=== PATIENT | male | born 1945 | race Caucasian/White ===

== ENCOUNTER 2016-10-19 11:52 | Inpatient (IN) | payer MEDICARE ==
[2016-10-19] VITALS (43 sets, daily range): BP systolic 93–152; BP diastolic 52–99; PULSE 83–122; RESP 18–34; TEMP 98; O2SAT 92–96; Ht 165.1 cm; Wt 121.2 kg
[~2016-10-19] VITALS: Ht 165.1 cm; Wt 121.2 kg
[~2016-10-19 11:52] MED LIST: [UNRECOGNIZED DRUG - CODE] IJ
--- OUTSIDE RECORDS SUMMARY | 2016-10-19 11:57 | XMS REPORT | Referral Summary ---
Author Author [facility], [facility] Organization [facility] Address Unknown Phone Unavailable Care Team Providers Care Tile Layer Name Role Phone Mitra Olmedo Primary Care Physician [phone] Encounter VC Date(s): 12/14/14 - 12/14/14 [facility] [address] [place] [id number] Discharge Disposition: 01-Home or Self Care Attending Physician: Ramon Olmedo MD Admitting Physician: Ramon Olmedo MD Vital Signs Most recent to 1 oldest [Reference Range]: Temperature Tympanic 36.5 degC [36.6-38.1 degC] *LOW* (12/14/14 2:46 PM) Blood Pressure 130/84 mmHg [90-140/60-90 mmHg] (12/14/14 2:46 PM) Problem List Condition Effective Dates Status Health Status Informant Acute Active pancreatitis(Confirm ed) Alcohol Active abuse(Confirmed) Alcohol Active withdrawal(Confirmed ) Benign essential Active hypertension (disorder)(Confirmed ) Coronary Active arteriosclerosis (disorder)(Confirmed ) Coronary artery Active disease(Confirmed) Dehydration(Confirme Active d) Depression(Confirmed Active ) Elevated Active carcinoembryonic antigen(Confirmed) Esophageal Active reflux(Confirmed) Hypertension(Confirm Resolved ed) Morbid Active patient obesity(Confirmed) Myocardial Active infarction(Confirmed ) Pneumonia(Confirmed) Active Allergies, Adverse Reactions, Alerts Substance Reaction Severity Status penicillin Active Medications Aleve 220 mg, Oral, q8hr Start Date: 03/29/14 Status: Ordered aspirin 81 mg, Oral, Daily Start Date: 03/29/14 Status: Ordered Excedrin Extra Strength tabs, Oral, q6hr Start Date: 03/29/14 Status: Ordered hydrochlorothiazide 25 mg oral tablet 25 mg 1 tabs, Oral, Daily, X 90 days, # 90 tabs, 3 Refill(s), Pharmacy: [facility] #[id number], 1 tabs Oral Daily,x90 days Start Date: 05/20/15 Stop Date: 05/14/16 Status: Ordered multivitamin Daily Start Date: 03/29/14 Status: Ordered Results No data available for this section Immunizations Vaccine Date Refusal Reason pneumococcal 23-polyvalent vaccine 10/31/12 tetanus toxoid 10/31/12 Procedures Procedure Date Related Diagnosis Body Site Hernia repair Social History Social History Type Response Smoking Status Former smoker1 1quit in 1970s Assessment and Plan Extracted from: Title: Office Visit Note Author: Ramon Olmedo MD Date: 12/14/14 Assessment/Plan Visit for suture removal Plan: routine wound care. Ordered: Postoperative Est [id number]
--- OUTSIDE RECORDS SUMMARY | 2016-10-19 11:57 | XMS REPORT | Referral Summary ---
Author Author [facility], Family [facility] Organization [facility] Address Unknown Phone Unavailable Care Team Providers Care Maintenance Coordinator Name Role Phone Mitra Olmedo Primary Care Physician [phone] Encounter VC Date(s): 11/16/14 - 11/16/14 [facility] [address] [place] [id number] Discharge Disposition: 01-Home or Self Care Attending Physician: Ramon Olmedo MD Admitting Physician: Ramon Olmedo MD Vital Signs Most recent to 1 oldest [Reference Range]: Temperature Tympanic 36.6 degC [36.6-38.1 degC] (11/16/14 2:03 PM) Peripheral Pulse 76 bpm Rate [60-100 bpm] (11/16/14 2:03 PM) Blood Pressure 148/82 mmHg [90-140/60-90 mmHg] *HI* (11/16/14 2:03 PM) Problem List Condition Effective Dates Status [...] days, # 90 tabs, 3 Refill(s), Pharmacy: [facility] #[id number], 1 tabs Oral Daily,x90 days Start Date: 05/20/15 Stop Date: 05/14/16 Status: Ordered multivitamin Daily Start Date: 03/29/14 Status: Ordered Results Chemistry Most recent to 1 oldest [Reference Range]: Sodium Lvl [135-144 139 mEq/L mEq/L] (11/16/14 2:58 PM) Potassium Lvl 4.3 mEq/L [3.5-5.2 mEq/L] (11/16/14 2:58 PM) Chloride [99-111 105 mEq/L mEq/L] (11/16/14 2:58 PM) CO2 [23-31 mEq/L] 22 mEq/L *LOW* (11/16/14 2:58 PM) AGAP [3-20] 12 (11/16/14 2:58 PM) BUN [8-26 mg/dL] 16 mg/dL (11/16/14 2:58 PM) Glucose Lvl [70-99 121 mg/dL mg/dL] *HI* (11/16/14 2:58 PM) Creatinine Lvl 0.78 mg/dL [0.72-1.25 mg/dL] (11/16/14 2:58 PM) eGFR [>60 mL/min] >60 mL/min 1 (11/16/14 2:58 PM) Calcium Lvl 9.6 mg/dL [8.9-10.5 mg/dL] (11/16/14 2:58 PM) 1Result Comment: Multiply eGFR results by 1.21 for race. Immunizations Vaccine Date Refusal Reason pneumococcal 23-polyvalent vaccine 10/31/12 tetanus toxoid 10/31/12 Procedures Procedure Date Related Diagnosis Body Site Hernia repair Social History Social History Type Response Smoking Status Former smoker1 1quit in 1970s Assessment and Plan Extracted from: Title: Office Visit Note Author: Ramon Olmedo MD Date: 11/16/14 Assessment/Plan Arm mass Benign essential hypertension (disorder) Ordered: Basic Metabolic Panel Coronary artery disease Plan: Continue all current medications and follow- up in 6 months. I'm checking lab tests today. Regarding the cyst I tried to drain it and it still seemed to fill out. Let's do an excisional biopsy/ removal of lesion.
--- OUTSIDE RECORDS SUMMARY | 2016-10-19 11:57 | XMS REPORT | Referral Summary ---
Author Author [facility], [facility] Organization [facility] Address Unknown Phone Unavailable Care Team Providers Care Title Lawyer Name Role Phone Mitra Olmedo Primary Care Physician [phone] Encounter VC Date(s): 05/20/15 - 05/20/15 [facility] [address] [place] [id number] Discharge Diagnosis: Hyperglycemia Discharge Diagnosis: Benign essential hypertension Discharge Disposition: 01-Home or Self Care Attending Physician: Ramon Olmedo MD Admitting Physician: Ramon Olmedo MD Vital Signs Most recent to 1 oldest [Reference Range]: Temperature Tympanic 36.1 degC [36.6-38.1 degC] *LOW* (05/20/15 1:06 PM) Peripheral Pulse 76 bpm Rate [60-100 bpm] (05/20/15 1:06 PM) Respiratory Rate 16 br/min [14-20 br/min] (05/20/15 1:06 PM) Blood Pressure 138/72 mmHg [90-140/60-90 mmHg] (05/20/15 1:06 PM) Problem List Condition Effective Dates Status [...] days, # 90 tabs, 3 Refill(s), Pharmacy: [facility] #[id number], 1 tabs Oral Daily,x90 days Start Date: 05/20/15 Stop Date: 05/14/16 Status: Ordered multivitamin Daily Start Date: 03/29/14 Status: Ordered Results Chemistry Most recent to 1 oldest [Reference Range]: Sodium Lvl [135-144 134 mEq/L mEq/L] *LOW* (05/20/15 2:03 PM) Potassium Lvl 4.0 mEq/L [3.5-5.2 mEq/L] (05/20/15 2:03 PM) Chloride [99-111 100 mEq/L mEq/L] (05/20/15 2:03 PM) CO2 [23-31 mEq/L] 24 mEq/L (05/20/15 2:03 PM) AGAP [3-20] 10 (05/20/15 2:03 PM) BUN [8-26 mg/dL] 16 mg/dL (05/20/15 2:03 PM) Glucose Lvl [70-99 249 mg/dL mg/dL] *HI* (05/20/15 2:03 PM) Creatinine Lvl 0.89 mg/dL [0.72-1.25 mg/dL] (05/20/15 2:03 PM) eGFR [>60 mL/min] >60 mL/min 1 (05/20/15 2:03 PM) Calcium Lvl 9.5 mg/dL [8.9-10.5 mg/dL] (05/20/15 2:03 PM) Hgb A1c [4.1-5.6 %] 11.1 % *HI* (05/20/15 2:03 PM) eAvg Glucose 271.9 mg/dL (05/20/15 2:03 PM) 1Result Comment: Multiply eGFR results by 1.21 for race. Immunizations Vaccine Date Refusal Reason pneumococcal 23-polyvalent vaccine 10/31/12 tetanus toxoid 10/31/12 Procedures Procedure Date Related Diagnosis Body Site Hernia repair Social History Social History Type Response Smoking Status Former smoker1 1quit in 1970s Assessment and Plan Extracted from: Title: Office Visit Note Author: Ramon Olmedo MD Date: 05/20/15 Assessment/Plan Benign essential hypertension, Essential (primary) hypertension Ordered: Basic Metabolic Panel Hyperglycemia, Hyperglycemia, unspecified Plan: Continue all current medications. Follow-up in 6 months with your new primary care doctor. We discussed need to find a new primary care doctor. We checking lab tests for diabetes. Also checking your kidney status. Ordered: Hemoglobin A1c Orders: hydrochlorothiazide, 25 mg 1 tabs, Oral, Daily, X 90 days, # 90 tabs, 3 Refill(s), Pharmacy: [facility] #[id number], 1 tabs Oral Daily,x90 days
--- OUTSIDE RECORDS SUMMARY | 2016-10-19 11:57 | XMS REPORT | Referral Summary ---
Author Author [facility], Family [facility] Organization [facility] Address Unknown Phone Unavailable Care Team Providers Care Neon Installer Name Role Phone Mitra Olmedo Primary Care Physician [phone] Encounter VC Date(s): 12/05/14 - 12/05/14 [facility] [address] [place] [id number] Discharge Disposition: 01-Home or Self Care Attending Physician: Ramon Olmedo MD Admitting Physician: Ramon Olmedo MD Vital Signs Most recent to 1 oldest [Reference Range]: Temperature Tympanic 37.0 degC [36.6-38.1 degC] (12/05/14 1:02 PM) Blood Pressure 158/84 mmHg [90-140/60-90 mmHg] *HI* (12/05/14 1:02 PM) Problem List Condition Effective Dates Status [...] 90 tabs, 3 Refill(s), Pharmacy: [facility] #[id number], 1 tabs Oral Daily,x90 days Start Date: 05/20/15 Stop Date: 05/14/16 Status: Ordered multivitamin Daily Start Date: 03/29/14 Status: Ordered Results No data available for this section Immunizations Vaccine Date Refusal Reason pneumococcal 23-polyvalent vaccine 10/31/12 tetanus toxoid 10/31/12 Procedures Procedure Date Related Diagnosis Body Site Excision, benign lesion including margins, 12/05/14 except skin tag (unless listed elsewhere), trunk, arms or legs; excised diameter 0.6 to 1.0 cm Hernia repair Social History Social History Type Response Smoking Status Former smoker1 1quit in 1970s Assessment and Plan Extracted from: Title: Office Visit Note Author: Ramon Olmedo MD Date: 12/05/14 Assessment/Plan Sebaceous cyst Plan: I performed an incision and removal. Inserting the wound; Clean the area twice a day with soap and water. Cover with a bandaide. Return to the clinic a week from Wednesday to remove sutures. If any signs or symptoms of infection occur call or return immediately. Addendum Length of incision is 1.1 cm by Ramon Olmedo MD on December 05, 2014 13:52:13 CDT
--- OUTSIDE RECORDS SUMMARY | 2016-10-19 11:57 | XMS REPORT | Continuity of Care Document ---
Author Author [facility] Organization [facility] Address Unknown Phone Unavailable Allergies Active Description Code Type Severity Reaction Onset Reported/Identified Relationship to Patient Clinical Status Yes penicillin NKMA N/A N/A 10/05/2013 Medications Problems Procedures Results Encounters ACCT No. Visit Date/Time Discharge Status Pt. Type Provider Facility Loc./Unit Complaint [id number] 05/20/2015 12:55:00 2014 23:59:00 DIS Outpatient Ramon Olmedo [facility] [place] htn [id number] 12/14/2014 14:34:00 2014 23:59:00 DIS Outpatient Ramon Olmedo [facility] [place] suture rem [id number] 12/05/2014 12:41:00 2014 23:59:00 DIS Outpatient Ramon Olmedo [facility] [place] cyst lft knee
[2016-10-19] MEDS ORDERED: MULT-1274 PO (12:22)
[2016-10-19] MEDS ORDERED: ASPI325T PO (12:22)
--- NOTE | 2016-10-19 12:29 | NUR ---
PROVIDER DR MARINO IN ROOM W/ PT.
--- NOTE | 2016-10-19 12:32 | ERPDOC ---
Departure Disposition Decision Date: October 19, 2016 Disposition Decision Time: 13:42 Disposition: 02 TO [facility] Impression Impression Impression: Primary Impression: New onset atrial fibrillation Severity: Moderate Condition: Stable Seen By: Physician only Referrals: DEANNA SULTANA MD (Family) Problems/Meds/Labs Reviewed?: Yes Medications reviewed and manag: Yes Follow up care ordered?: Yes Mental Status: Alert, Oriented HPI - Dyspnea General Chief Complaint: Dyspnea/Respdistress Stated Complaint: TROUBLE BREATHING Time Seen by Provider: 12:29 HPI - Dyspnea Allergies: Coded Allergies: Penicillins (Verified Allergy, Unknown, UNKNOWN, 11/01/11) Past History Past Medical History GI: pancreatitis Psychological: alcohol abuse, depression Surgical History General: hernia Family History Family PMH: FOUND: other Vaccines Hx Influenza Vaccination: No (pt stated he did not want the vaccination) Hx Pneumococcal Vaccination: No Physical Exam General Vitals and Pain First Documented Vital Signs Date Time Temp Pulse Resp B/P Pulse Ox O2 Delivery O2 Flow Rate FiO2 10/19/16 11:54 98.2 146 24 153/102 95 Room Air Weight: Kilograms: 128.400 Height (feet): 5 Height (inches): 5.00 Triage Pain Scale: Progress Results/Orders Orders Procedure Category Date Status Time Cbc W/Auto LAB 10/19/16 Complete Diff-Reflex Manual 12:29 Cmp - Comprehensive LAB 10/19/16 Complete Metabolic 12:29 Probnp LAB 10/19/16 Complete 12:29 Troponin I W LAB 10/19/16 Complete Hemolysis Index 12:29 D-Dimer LAB 10/19/16 Complete 12:29 Tsh - Thyroid Stim LAB 10/19/16 Complete Hormone 12:29 Magnesium LAB 10/19/16 Complete 12:29 EKG EKG 10/19/16 Taken 12:29 Chest, Pa & Lateral RAD 10/19/16 Resulted 12:29 Iv Lock (Ed Only) EDM 10/19/16 Transmitted 12:29 Metoprolol (Lopressor) PHA 10/19/16 Complete 12:45 Furosemide (Lasix) PHA 10/19/16 Complete 12:45 Diltiazem (Cardizem*) PHA 10/19/16 Complete Iv Bolus (Cardizem 13:15 Normal Saline (Ns) PHA 10/19/16 In Process W/Diltiazem 13:15 Lab Results Laboratory Tests Test 10/19/16 12:39 White Blood Count 9.4T/MM3 Red Blood Count 4.66M/MM3 Hemoglobin 13.6GM/DL Hematocrit 41.1% Mean Corpuscular Volume 88.2UM3 Mean Corpuscular Hemoglobin 29.2UUG Mean Corpuscular Hemoglobin Concent 33.1GM/DL RDW Standard Deviation 47.3FL Platelet Count 163T/MM3 Mean Platelet Volume 12.8UM3 Immature Granulocyte % (Auto) 0.2% Neutrophils (%) (Auto) 70.3% Lymphocytes (%) (Auto) 21.7% Monocytes (%) (Auto) 5.9% Eosinophils (%) (Auto) 1.8% Basophils (%) (Auto) 0.1% Absolute Immature Granulocyte (auto 0.02T/MM3 Absolute Neutrophils (auto) 6.6T/MM3 Absolute Lymphocytes (auto) 2.1T/MM3 Absolute Monocytes (auto) 0.6T/MM3 Absolute Eosinophils (auto) 0.2T/MM3 Absolute Basophils (auto) 0.0T/MM3 D-Dimer 212NG/ML Turbidity < 20 Sodium Level 145MEQ/L Potassium Level 3.9MEQ/L Chloride Level 107MEQ/L Carbon Dioxide Level 23MEQ/L Anion Gap 15MEQ/L Blood Urea Nitrogen 16.0MG/DL Creatinine 0.8MG/DL Glomerular Filtration Rate Calc 95 BUN/Creatinine Ratio 20RATIO Glucose Level 118MG/DL Calculated Osmolality 281MOSM/KG Calcium Level 8.8MG/DL Magnesium Level 1.9MG/DL Total Bilirubin 1.60MG/DL Icterus Index < 2 Aspartate Amino Transf (AST/SGOT) 24U/L Alanine Aminotransferase (ALT/SGPT) 39U/L Alkaline Phosphatase 81U/L Troponin I < 0.012ng/ml [id number] Natriuretic Peptide 679PG/ML Total Protein 7.4G/DL Albumin 4.4G/DL Globulin 3.0G/DL Albumin/Globulin Ratio 1.5RATIO Thyroid Stimulating Hormone (TSH) 1.23MIU/L Chemistry Specimen Hemolysis < 15 Medications Current ED Medications Metoprolol Tartrate (Lopressor) 5 mg O ONCE IV Last administered on 10/19/16 12:42; Start 10/19/16 at 12:45; Stop 10/19/16 at 12:46; Status DC Furosemide (Lasix) 20 mg O ONCE IV Last administered on 10/19/16 12:41; Start 10/19/16 at 12:45; Stop 10/19/16 at 12:46; Status DC Diltiazem HCl 20 mg 20 mg O ONCE IV Last administered on 10/19/16 13:19; Start 10/19/16 at 13:15; Stop 10/19/16 at 13:16; Status DC Diltiazem HCl/ Sodium Chloride (Cardizem 125 Mg/ 25 ml Injection/ NS) 125 ml @ 10 mls/hr [id number] IV ; Start 10/19/16 at 13:15 PILY MARINO MD October 19, 2016 12:32
[2016-10-19] MEDS ORDERED: METOPROLOL 5mg/5ml INJECTION IV ONE (12:45)
[2016-10-19] MEDS ORDERED: FUROSEMIDE 20 MG/2 ML INJECTION IV ONE (12:45)
[2016-10-19 12:46] LABS: BASOPHILS % (AUTO) 0.1 % (0-2); EOSINOPHILS # (AUTO) 0.2 T/MM3 (0-0.5); EOSINOPHILS % (AUTO) 1.8 % (0-4); HCT - HEMATOCRIT 41.1 % (41-53); HGB - HEMOGLOBIN 13.6 GM/DL (13.5-17.5); IMMATURE GRANULOCYTE # (AUTO) 0.02 T/MM3 (0.00-0.03); IMMATURE GRANULOCYTE % (AUTO) 0.2 % (0.0-0.5); LYMPHOCYTES # (AUTO) 2.1 T/MM3 (1-4.8); LYMPHOCYTES % (AUTO) 21.7 % (23-45); MEAN CORPUSCULAR HGB 29.2 UUG (26-34); MEAN CORPUSCULAR HGB CONC(MCHC 33.1 GM/DL (31-37); MEAN CORPUSCULAR VOLUME 88.2 UM3 (80-100); MEAN PLATELET VOLUME 12.8 UM3 (9.4-12.4); MONOCYTES # (AUTO) 0.6 T/MM3 (0-0.8); MONOCYTES % (AUTO) 5.9 % (0-9.0); NEUTROPHILS #(AUTO)-ABSOLUTE 6.6 T/MM3 (1.8-7.7); NEUTROPHILS % (AUTO) 70.3 % (33-66); RED BLOOD COUNT 4.66 M/MM3 (4.50-5.90); WBC - WHITE BLOOD COUNT 9.4 T/MM3 (4.5-11.0)
[2016-10-19 12:59] LABS: ALBUMIN 4.4 G/DL (3.5-5.0); ALBUMIN/GLOBULIN RATIO 1.5 RATIO (1.1-2.2); ALKALINE PHOSPHATASE 81 U/L (38-126); ALT (SGPT) 39 U/L (21-72); ANION GAP 15 MEQ/L (5-15); AST (SGOT) 24 U/L (17-59); BUN/CREATININE RATIO 20 RATIO (6-26); CALCIUM 8.8 MG/DL (8.4-10.2); CHLORIDE 107 MEQ/L (98-107); CO2 - CARBON DIOXIDE 23 MEQ/L (22-30); CREATININE 0.8 MG/DL (0.8-1.5); GLOMERULAR FILTRATION RATE 95; GLUCOSE 118 MG/DL (75-110); MAGNESIUM 1.9 MG/DL (1.6-2.3); POTASSIUM 3.9 MEQ/L (3.6-5); SODIUM 145 MEQ/L (134-144); TOTAL PROTEIN 7.4 G/DL (6.3-8.2)
[2016-10-19 13:11] LABS: PROBNP 679 PG/ML (0-175)
[2016-10-19] MEDS ORDERED: DILTIAZEM 25mg/5ml INJECTION IV ONE (13:15)
[2016-10-19] MEDS ORDERED: DILTIAZEM 125 MG in NORMAL SALINE 125 ML IV SCH (13:15)
--- OUTSIDE RECORDS SUMMARY | 2016-10-19 13:16 | XMS REPORT | Continuity of Care Document ---
Author Author [facility] Organization [facility] Address Unknown Phone Unavailable Allergies Active Description Code Type Severity Reaction Onset Reported/Identified Relationship to Patient Clinical Status Yes penicillin NKMA N/A N/A 10/05/2013 Medications Problems Procedures Results Encounters ACCT No. Visit Date/Time Discharge Status Pt. Type Provider Facility Loc./Unit Complaint [id number] 05/20/2015 12:55:00 2014 23:59:00 DIS Outpatient Ramon Olmedo Via [facility] [place] htn [id number] 12/14/2014 14:34:00 2014 23:59:00 DIS Outpatient Ramon Olmedo [facility] [place] suture rem [id number] 12/05/2014 12:41:00 2014 23:59:00 DIS Outpatient Ramon Olmedo [facility] [place] cyst lft knee
--- NOTE | 2016-10-19 13:24 | NUR ---
XRAY PORTABLE CHEST
[2016-10-19 13:29] LABS: THYROID STIM HORMONE-TSH 1.23 MIU/L (0.47-4.68)
--- NOTE | 2016-10-19 13:30 | DI ---
INDICATION: ITS.REASON: shortness of breath, wheezing PROCEDURE: CHEST 2-VIEWS UPRIGHT (PA \T\ LAT) Encounter: Initial COMPARISON: November 02, 2011 FINDINGS: New small bilateral pleural effusions. There is bilateral lower lobe consolidation, right greater than left. There is obscuration of the right medial hemidiaphragm and prominence of the right infrahilar region. Small amount fluid along the minor fissure. No pneumothorax. Lungs are hypoinflated. Cardiac silhouette is mildly enlarged. Pulmonary vascularity appears slightly prominent. Impression: Right lower lobe pneumonia or aspiration with small effusions. There could be some element of superimposed pulmonary edema. .
--- NOTE | 2016-10-19 13:49 | NUR ---
REPORT REPORT GIVEN TO AZUCENA BENITO.
--- NOTE | 2016-10-19 14:10 | NUR ---
DEPART PT LEFT ER VIA CART TO CCU FOR CONT CARE OF A-FIB AND CHF CONDITION, PT LEFT VIA CART W/ O2 CHARTED AND CONSTANT MONITORING W/O CHANGE. PT CARE XFERED TO STAFF CCU RM 1 IN NO ACUTE DISTRESS W/O CHANGE.
--- NOTE | 2016-10-19 14:10 | NUR ---
Admit Pt admitted to CCU bed 1 from ER. Pt brought over via cart. Pt was able to ambulate self from cart to bed. Pt did however get very SOA and continues to have SOA with minimal activity. Pulse 110s when admitted. Cardizem gtt infusing into RH. Pt oriented to unit and verbalized understanding. Will continue monitor.
--- OUTSIDE RECORDS SUMMARY | 2016-10-19 14:10 | XMS REPORT | Continuity of Care Document ---
Author Author [facility] Organization [facility] Address Unknown Phone Unavailable Allergies Active Description Code Type Severity Reaction Onset Reported/Identified Relationship to Patient Clinical Status Yes penicillin NKMA N/A N/A 10/05/2013 Medications Problems Procedures Results Encounters ACCT No. Visit Date/Time Discharge Status Pt. Type Provider Facility Loc./Unit Complaint [id number] 05/20/2015 12:55:00 2014 23:59:00 DIS Outpatient Ramon Olmedo Via [facility] [place] htn [id number] 12/14/2014 14:34:00 2014 23:59:00 DIS Outpatient Ramon Olmedo [facility] [place] suture rem [id number] 12/05/2014 12:41:00 2014 23:59:00 DIS Outpatient Ramon Olmedo [facility] [place] cyst lft knee
[2016-10-19] MEDS ORDERED: ACETAMINOPHEN 500 MG TABLET PO PRN (14:45)
[2016-10-19] MEDS: DILTIAZEM 125 MG in NORMAL SALINE 125 ML IV SCH ×2 (14:47→20:36)
--- NOTE | 2016-10-19 14:50 | HPPDOC ---
LORAINE GONZALEZ V MACHINE ICER 10/19/16 1418: HPI - Adult Date DATE: 10/19/16 TIME: 14:05 General Chief Complaint: Dyspnea History of Present Illness Patient is a 71-year-old male who presented to the emergency room today for acute evaluation of dyspnea over the last 3 days. He reports shortness of breath that is worse at night while laying down. No chest pain, palpitations, dizziness, or GI complaints. Due to his consistent symptoms he presented to the ER today. On arrival to the emergency room his heart rate was found to be at 146 and 12-lead EKG did reveal atrial fibrillation RVR. Further evaluation including laboratory studies was obtained. The BBC count 9.4, hemoglobin 13.6, hematocrit 31.1, platelet count 163. Sodium slightly elevated at 145, potassium 3.9, BUN 16, creatinine 0.8, glucose 118. Total bilirubin is 1.6. Troponin is negative, less than 0.012, proBNP 679, TSH 1.23. D-dimer 212. Chest X-ray was obtained revealing new small bilateral pleural effusions along with right lower lobe possible pneumonia. He was given Lopressor 5 milligrams IV initially followed by Lasix 20 milligrams IV and Cardizem 10 milligrams IV. Cardizem drip was then started at 10 mg/hr. Rate decreased 110- 120 however rhythm remains in A-fib. Dr Pugh was contacted by the emergency room provider and will consult for further cardiac evaluation. The hospitalist services were contacted and accepted patient for inpatient admission to the ICU for further evaluation and treatment. Ovi is seen on initial examination today while in the ER. He is alert, oriented and appropriate. His only complaint is dyspnea that is worse when he attempts to lay back. He reports has not been seen by primary care provider in the past 2 years as his previous provider Dr. Olmedo left via [facility]. Patient states that he has no active health problems. He does report that he has chronic right lower extremity swelling that is worse around the ankle that he suspects is arthritis. We did discuss advanced directives and he does verify that he would like to be a full code. Past Medical History Past Medical History HTN Coronary artery disease with reported hx of NV Depression GERD History of pancreatitis History of alcohol abuse, quit October 2011 Surgical History Patient's Surgical History: Umbilical hernia repair. Cataract repair Current Medications Home Meds Reported Medications Multivit-Min/FA/Lycopen/Lutein (Centrum Silver Men Tablet) 1 Each Tablet, 1 TAB PO QD 10/19/16 Aspirin (Aspirin) 325 Mg Tablet, 1 TAB PO DAILY 10/19/16 Allergies: Coded Allergies: Penicillins (Verified Allergy, Unknown, UNKNOWN, 10/19/16) Family History Family History: Positive strong family history of alcohol abuse. Father-coronary artery disease, NV. Mother-CVA, seizure disorder Social History Smoking Status: Former smoker Substance Use Type: does not use Alcohol Intake: none, other (Former ETOH use. Quit 2014) Housing: house Current Occupational Status: employed ([employer] in [employer]) Advance Directives: Yes Full Code Social History Comments No current PCP (Used to see Dr Olmedo at [facility]) Review of Systems Cardiovascular dyspnea on exertion, paroxysmal nocturnal dysp Pulmonary Respiratory: dyspnea Musculoskeletal General: edema (chronic lower ext edema R>L), pain (chronic pain to RLE) All Other Systems All Other Systems: Reviewed (remainder of 10-point ROS Neg.) Physical Exam General General Nourishment: well nourished, well developed Vital Signs Vital Signs Date Time Temp Pulse Resp B/P Pulse Ox O2 Delivery O2 Flow Rate FiO2 10/19/16 11:54 98.2 146 24 153/102 95 Room Air Height (Feet): 5 Height (Inches): 5.00 Eyes Brief: FOUND: EOMI ENMT Brief: FOUND: mucosa moist, normal dentition, NOT FOUND: pharnyx erythema Neck Brief: FOUND: midline, NOT FOUND: adenopathy, carotid bruits, tracheal deviation Respiratory Brief: FOUND: clear all ray, equal bilaterally Cardiovascular (brief) Cardiac Brief: FOUND: pedal edema (chronic bilateral lower extremity edema, right > left) Comments Irregular heart rate, atrial fibrillation, rate 120s Abdomen (brief) Abdominal Brief: FOUND: BS normo active x4, soft, NOT FOUND: distended, tender Musculoskeletal (brief) Musculoskeletal Brief: FOUND: tenderness (Chronic right ankle pain) Integumentary (brief) Integumentary Brief: FOUND: dry, pink, warm Neurologic (brief) Neurological Brief: FOUND: cranial 2-12 intact, motor (moves all ext equally), sensory (sensation equal x4 ext) Neurologic RN Documented GCS Eye Opening: Verbal: Motor: Total: Psychiatric (brief) FOUND: alert, attentive, normal affect, oriented Laboratory Laboratory Tests Test 10/19/16 12:39 White Blood Count 9.4T/MM3 Red Blood Count 4.66M/MM3 Hemoglobin 13.6GM/DL Hematocrit 41.1% Mean Corpuscular Volume 88.2UM3 Mean Corpuscular Hemoglobin 29.2UUG Mean Corpuscular Hemoglobin Concent 33.1GM/DL RDW Standard Deviation 47.3FL Platelet Count 163T/MM3 Mean Platelet Volume 12.8UM3 Immature Granulocyte % (Auto) 0.2% Neutrophils (%) (Auto) 70.3% Lymphocytes (%) (Auto) 21.7% Monocytes (%) (Auto) 5.9% Eosinophils (%) (Auto) 1.8% Basophils (%) (Auto) 0.1% Absolute Immature Granulocyte (auto 0.02T/MM3 Absolute Neutrophils (auto) 6.6T/MM3 Absolute Lymphocytes (auto) 2.1T/MM3 Absolute Monocytes (auto) 0.6T/MM3 Absolute Eosinophils (auto) 0.2T/MM3 Absolute Basophils (auto) 0.0T/MM3 D-Dimer 212NG/ML Turbidity < 20 Sodium Level 145MEQ/L Potassium Level 3.9MEQ/L Chloride Level 107MEQ/L Carbon Dioxide Level 23MEQ/L Anion Gap 15MEQ/L Blood Urea Nitrogen 16.0MG/DL Creatinine 0.8MG/DL Glomerular Filtration Rate Calc 95 BUN/Creatinine Ratio 20RATIO Glucose Level 118MG/DL Calculated Osmolality 281MOSM/KG Calcium Level 8.8MG/DL Magnesium Level 1.9MG/DL Total Bilirubin 1.60MG/DL Icterus Index < 2 Aspartate Amino Transf (AST/SGOT) 24U/L Alanine Aminotransferase (ALT/SGPT) 39U/L Alkaline Phosphatase 81U/L Troponin I < 0.012ng/ml NZ-Ach-K-Type Natriuretic Peptide 679PG/ML Total Protein 7.4G/DL Albumin 4.4G/DL Globulin 3.0G/DL Albumin/Globulin Ratio 1.5RATIO Thyroid Stimulating Hormone (TSH) 1.23MIU/L Chemistry Specimen Hemolysis < 15 Assessment & Plan Problems: (1) New onset atrial fibrillation Status: Acute (2) Dyspnea Status: Acute Qualifiers: Dyspnea type: dyspnea on exertion Qualified Codes: R06.09 - Other forms of dyspnea (3) HTN (hypertension) Status: Chronic (4) CAD (coronary artery disease) Status: Chronic (5) GERD (gastroesophageal reflux disease) Status: Chronic (6) Obesity, Class III, BMI 40-49.9 (morbid obesity) Status: Chronic (7) History of alcohol dependence Status: Resolved Assessment & Plan: Quit October 2014 Plan/Intensity of Service Admit patient to inpatient status under the care of Dr Rodney for new-onset atrial fibrillation with RVR Spoke with Dr Pugh about cardiology consultation. He recommends diuresing with schedule Bumex every 8 hours. Patient initially received Lasix 20mg IV at 1245. Will continue on Cardizem drip at 10 milligrams per hour for rate control as he continues in atrial fibrillation. Continue to monitor on cardiac telemetry. Will obtain complete echocardiogram Obtain serial troponin every 6 hours 3. Although patient reports no past medical history old records revel history of coronary artery disease, GERD, NV, hypertension and alcohol abuse. It is also reported that a Hgb A1c was obtained in 2014 which was found to be elevated over 11. We will recheck Hgb A1C on admission now. Jose A elizabethe and SCDs to bilateral lower ext to assist with peripheral edema. Oxygen therapy as needed to maintain saturations greater then 92% CHADS2 score 2-3 , indicating a moderate risk of stroke predictor. Recommend initiation of anticoagulation. Cardiology recommends Eliquis 5 mg BID. Will initiate on admission. Will recheck BMP tomorrow morning to follow electrolytes Again patient requests full code and this order is written Will discuss further orders and plan with attending, Dr Rodney DVT Prophylaxis: SCD'S, JOSE A Hose, other (Eliquis) Code Status Full Code Hospital Course Summary Disclaimer The hospital course summary below is not to be considered part of the above Progress Note. Hospital Course Summary Admit patient to inpatient status under the care of Dr Rodney for new-onset atrial fibrillation with RVR Spoke with Dr Pugh about cardiology consultation. He recommends diuresing with schedule Bumex every 8 hours. Patient initially received Lasix 20mg IV at 1245. Will continue on Cardizem drip at 10 milligrams per hour for rate control as he continues in atrial fibrillation. Continue to monitor on cardiac telemetry. Will obtain complete echocardiogram Obtain serial troponin every 6 hours 3. Although patient reports no past medical history old records revel history of coronary artery disease, GERD, NV, hypertension and alcohol abuse. It is also reported that a Hgb A1c was obtained in 2015 which was found to be elevated over 11. We will recheck Hgb A1C on admission now. Jose A hose and SCDs to bilateral lower ext to assist with peripheral edema. Oxygen therapy as needed to maintain saturations greater then 92% CHADS2 score 2-3 , indicating a moderate risk of stroke predictor. Recommend initiation of anticoagulation. Cardiology recommends Eliquis 5 mg BID. Will initiate on admission. Will recheck BMP tomorrow morning to follow electrolytes Again patient requests full code and this order is written Will discuss further orders and plan with attending, MARKELL Pabon MD 10/19/16 1722: Past Medical History Current Medications Home Meds Reported Medications Multivit-Min/FA/Lycopen/Lutein (Centrum Silver Men Tablet) 1 Each Tablet, 1 TAB PO QD 10/19/16 Aspirin (Aspirin) 325 Mg Tablet, 1 TAB PO DAILY 10/19/16 Allergies: Coded Allergies: Penicillins (Verified Allergy, Unknown, UNKNOWN, 10/19/16) Assessment & Plan Assessment I have independently evaluated and examined this patient. I reviewed the chart, the patient's history, and the MACHINE ICER's documented findings as above. We discussed and formulated the assessment and plan as above with additions as below: Mr. Palma presents with nocturnal dyspnea/PND and minimal exertional dyspnea with relatively new onset over the past 3-4 days. Symptoms worsened last night. He has noted some edema in his lower extremities as well. He denies chest pain or palpitations. He has some minor intermittent reflux which he correlates with food type. Although outpatient records report past history of NV/CAD patient denies knowledge of any past coronary disease and old hospital records make no reference to acute cardiac events over the past 10 years. He is currently on a diltiazem drip at 15 mg/hr with improvement in heart rate. He reports diuresing well since admission. Examination reveals a male resting in bed with head of bed elevated partially 50 . Respirations are nonlabored. Breath sounds are diminished at the bases bilaterally. Irregular cardiac rhythm, no murmur appreciated +1 edema pretibially bilaterally EKG (initial) with atrial fibrillation, low voltage, rate [address] Pugh, initial data unremarkable except BNP 679 and bilirubin 1.6. Echocardiogram completed, report pending. Anticoagulation initiated with Eliquis, rate adequately controlled on diltiazem- cardioversion being considered. Chest x-ray reviewed by myself, fluid in fissures and small effusions. Do not believe there is any indication of infiltrate. Continue diuresis. In addition to above diagnoses please add: Acute congestive heart failure Plan/Intensity of Service Discussed with Dr. Pugh, chest x-ray reviewed by myself, EKG reviewed by myself, laboratory data reviewed, old records/outpatient records reviewed. LORAINE GONZALEZ APRN October 19, 2016 14:18 MARKELL RODNEY MD October 19, 2016 17:22
--- NOTE | 2016-10-19 15:54 | CONSPD ---
Consultation Info Date DATE: 10/19/16 TIME: 15:39 Date of Consultation: October 19, 2016 Attending Physician: Sri Rodney MD Reason for Consultation: new-onset A Fib HPI - Adult Date DATE: 10/19/16 TIME: 15:39 General Date of Admission Date of Admission: October 19, 2016 at 13:40 Chief Complaint: Dyspnea History of Present Illness Ovi is a 71-year-old male who presented to the ED today for acute evaluation of dyspnea over the last 3 days. He reports shortness of breath that is worse at night while laying down. No chest pain, palpitations, dizziness, or GI complaints. Due to his consistent symptoms he presented to the ER today. On arrival to the emergency room his heart rate was found to be at 146 and 12-lead EKG did reveal atrial fibrillation RVR. Troponin is negative, less than 0.012, proBNP 679, TSH 1.23. D-dimer 212. Chest X-ray was obtained revealing new small bilateral pleural effusions along with right lower lobe possible pneumonia. He was given Lopressor 5 milligrams IV initially followed by Lasix 20 milligrams IV and Cardizem 10 milligrams IV. Cardizem drip was then started at 10 mg/hr. Rate decreased 110- 120 however rhythm remains in A-fib. Dr Pugh will consult for further cardiac evaluation. He was seen in the ED by Dr. Pugh. He denies chest pain but states there is some tightness the past couple of days. He denies palpitations or racing heart rate. He feels his SOA worsened today. States he feels better after medication given in ED. Past Medical History Past Medical History Metabolic: hypertension Cardiac: CAD, LA (reported) GI: GERD, pancreatitis Psychological: alcohol abuse (quit October 2011), depression Surgical History General: hernia, other (cataract) Current Medications Home Meds Reported Medications Multivit-Min/FA/Lycopen/Lutein (Centrum Silver Men Tablet) 1 Each Tablet, 1 TAB PO QD 10/19/16 Aspirin (Aspirin) 325 Mg Tablet, 1 TAB PO DAILY 10/19/16 Allergies: Coded Allergies: Penicillins (Verified Allergy, Unknown, UNKNOWN, 10/19/16) Family History FOUND: CAD (father), CVA (mother), LA (father), alcohol abuse, other Vaccines Refused Social History Smoking Status: Former smoker Substance Use Type: does not use Alcohol Intake: none, other (Former ETOH use. Quit 2014) Housing: house Current Occupational Status: employed ([employer] in [employer]) Advance Directives: Yes Full Code, No DPOA for Healthcare Only Review of Systems Constitutional: DENIES: chills, dizziness, fatigue, fever, weakness Eyes Vision: DENIES: vision changes ENMT Hearing: DENIES: tinnitus Balance: DENIES: vertigo Sinuses: NOT FOUND: rhinorrhea Mouth/Throat: DENIES: sore throat Cardiovascular chest pain (tightness), dyspnea on exertion, orthopnea, paroxysmal nocturnal dysp Rhythm/Rate: DENIES: irregular beat, palpitations, tachycardia Vascular: pedal edema Pulmonary Respiratory: DENIES: cough, sputum GI Upper Abdomen: DENIES: nausea, vomiting Lower Abdomen: DENIES: diarrhea General: DENIES: dysuria Integumentary Skin: DENIES: rash, sores Neurological General: DENIES: headache, numbness, seizures, syncope, weakness All Other Systems All Other Systems: Reviewed (remainder of 10-point ROS Neg.) Physical Exam General General Nourishment: well nourished, well developed, obese, apparent age Vital Signs Vital Signs Date Time Temp Pulse Resp B/P Pulse Ox O2 Delivery O2 Flow Rate FiO2 10/19/16 14:30 109 24 10/19/16 14:15 98.0 139/81 94 Nasal Cannula 2.00 Height (Feet): 5 Height (Inches): 5.00 Telemetry Rhythm: Atrial Fibrillation ENMT Brief: FOUND: mucosa moist Neck Brief: FOUND: JVD, NOT FOUND: carotid bruits Respiratory Brief: FOUND: equal bilaterally, rales (bibasilar), NOT FOUND: clear all ray Cardiovascular (brief) Cardiac Brief: FOUND: pedal edema, NOT FOUND: click, gallop, murmur, regular rate, regular rhythm Abdomen (brief) Abdominal Brief: FOUND: BS normo active x4, soft, NOT FOUND: tender Integumentary (brief) Integumentary Brief: FOUND: dry, pink, warm Neurologic RN Documented GCS Eye Opening: Verbal: Motor: Total: Psychiatric (brief) FOUND: alert, attentive, normal affect, oriented Laboratory Laboratory Tests Test 10/19/16 12:39 White Blood Count 9.4T/MM3 Red Blood Count 4.66M/MM3 Hemoglobin 13.6GM/DL Hematocrit 41.1% Mean Corpuscular Volume 88.2UM3 Mean Corpuscular Hemoglobin 29.2UUG Mean Corpuscular Hemoglobin Concent 33.1GM/DL RDW Standard Deviation 47.3FL Platelet Count 163T/MM3 Mean Platelet Volume 12.8UM3 Immature Granulocyte % (Auto) 0.2% Neutrophils (%) (Auto) 70.3% Lymphocytes (%) (Auto) 21.7% Monocytes (%) (Auto) 5.9% Eosinophils (%) (Auto) 1.8% Basophils (%) (Auto) 0.1% Absolute Immature Granulocyte (auto 0.02T/MM3 Absolute Neutrophils (auto) 6.6T/MM3 Absolute Lymphocytes (auto) 2.1T/MM3 Absolute Monocytes (auto) 0.6T/MM3 Absolute Eosinophils (auto) 0.2T/MM3 Absolute Basophils (auto) 0.0T/MM3 D-Dimer 212NG/ML Turbidity < 20 Sodium Level 145MEQ/L Potassium Level 3.9MEQ/L Chloride Level 107MEQ/L Carbon Dioxide Level 23MEQ/L Anion Gap 15MEQ/L Blood Urea Nitrogen 16.0MG/DL Creatinine 0.8MG/DL Glomerular Filtration Rate Calc 95 BUN/Creatinine Ratio 20RATIO Glucose Level 118MG/DL Hemoglobin A1c 6.5% Calculated Osmolality 281MOSM/KG Calcium Level 8.8MG/DL Magnesium Level 1.9MG/DL Total Bilirubin 1.60MG/DL Icterus Index < 2 Aspartate Amino Transf (AST/SGOT) 24U/L Alanine Aminotransferase (ALT/SGPT) 39U/L Alkaline Phosphatase 81U/L Troponin I < 0.012ng/ml OZ-Gey-L-Type Natriuretic Peptide 679PG/ML Total Protein 7.4G/DL Albumin 4.4G/DL Globulin 3.0G/DL Albumin/Globulin Ratio 1.5RATIO Thyroid Stimulating Hormone (TSH) 1.23MIU/L Chemistry Specimen Hemolysis < 15 Laboratory Tests Test 10/19/16 12:39 White Blood Count 9.4T/MM3 Red Blood Count 4.66M/MM3 Hemoglobin 13.6GM/DL Hematocrit 41.1% Mean Corpuscular Volume 88.2UM3 Mean Corpuscular Hemoglobin 29.2UUG Mean Corpuscular Hemoglobin Concent 33.1GM/DL RDW Standard Deviation 47.3FL Platelet Count 163T/MM3 Mean Platelet Volume 12.8UM3 Immature Granulocyte % (Auto) 0.2% Neutrophils (%) (Auto) 70.3% Lymphocytes (%) (Auto) 21.7% Monocytes (%) (Auto) 5.9% Eosinophils (%) (Auto) 1.8% Basophils (%) (Auto) 0.1% Absolute Immature Granulocyte (auto 0.02T/MM3 Absolute Neutrophils (auto) 6.6T/MM3 Absolute Lymphocytes (auto) 2.1T/MM3 Absolute Monocytes (auto) 0.6T/MM3 Absolute Eosinophils (auto) 0.2T/MM3 Absolute Basophils (auto) 0.0T/MM3 D-Dimer 212NG/ML Turbidity < 20 Sodium Level 145MEQ/L Potassium Level 3.9MEQ/L Chloride Level 107MEQ/L Carbon Dioxide Level 23MEQ/L Anion Gap 15MEQ/L Blood Urea Nitrogen 16.0MG/DL Creatinine 0.8MG/DL Glomerular Filtration Rate Calc 95 BUN/Creatinine Ratio 20RATIO Glucose Level 118MG/DL Hemoglobin A1c 6.5% Calculated Osmolality 281MOSM/KG Calcium Level 8.8MG/DL Magnesium Level 1.9MG/DL Total Bilirubin 1.60MG/DL Icterus Index < 2 Aspartate Amino Transf (AST/SGOT) 24U/L Alanine Aminotransferase (ALT/SGPT) 39U/L Alkaline Phosphatase 81U/L Troponin I < 0.012ng/ml CT-Gmf-R-Type Natriuretic Peptide 679PG/ML Total Protein 7.4G/DL Albumin 4.4G/DL Globulin 3.0G/DL Albumin/Globulin Ratio 1.5RATIO Thyroid Stimulating Hormone (TSH) 1.23MIU/L Chemistry Specimen Hemolysis < 15 EKG A Fib with RVR, rate 142 Radiology DATE OF EXAM: 10/19/16 ORDERING DOCTOR: PILY MARINO MD TYPE OF EXAM: CHEST, PA & LATERAL REASON FOR EXAM: shortness of breath, wheezing INDICATION: ITS.REASON: shortness of breath, wheezing PROCEDURE: CHEST 2-VIEWS UPRIGHT (PA \T\ LAT) Encounter: Initial COMPARISON: November 02, 2011 FINDINGS: New small bilateral pleural effusions. There is bilateral lower lobe consolidation, right greater than left. There is obscuration of the right medial hemidiaphragm and prominence of the right infrahilar region. Small amount fluid along the minor fissure. No pneumothorax. Lungs are hypoinflated. Cardiac silhouette is mildly enlarged. Pulmonary vascularity appears slightly prominent. Impression: Right lower lobe pneumonia or aspiration with small effusions. There could be some element of superimposed pulmonary edema. DATE OF PROCEDURE October 19, [address] Sri Rodney This is a two-dimensional echo with spectral Doppler, color-flow and M-mode. It was obtained in a patient with atrial fibrillation with rapid ventricular rate. Left atrium is dilated. Left ventricle end-diastolic dimension is normal. Left ventricle wall thickness is at the upper limits of normal. LV systolic function is normal with ejection fraction of 64%. Right atrium is normal. Right ventricle is normal. Aortic root dimension is normal. Mitral valve annulus is calcified. Mitral valve leaflets are sclerotic with mild mitral regurgitation. Aortic valve shows fibrocalcific changes with no stenosis or insufficiency. Tricuspid valve shows mild tricuspid regurgitation with normal estimated pulmonary artery systolic pressure of 28. Pulmonary valve shows mild pulmonary insufficiency. There is no pericardial effusion. IMPRESSION 1. Technically difficult study. 2. Normal LV systolic function with ejection fraction of 64%. 3. Mitral annulus calcification with mild mitral regurgitation. 4. Aortic sclerosis. 5. Left atrial dilation. 6. Mild pulmonary insufficiency. 7. Mild tricuspid regurgitation with normal estimated pulmonary artery systolic pressure of 28. Impression/Recommendation Problems: (1) New onset atrial fibrillation Status: Acute Assessment & Plan: CCU admission. Diltiazem drip up to 15mg/hr for rate control. NPO after midnight for KHALIDA cardioversion tomorrow at noon. Eliquis 5mg BID for anticoagulation (2) Dyspnea Status: Acute Assessment & Plan: Diuresis with Bumex 2mg IV BID. replace K+, monitor lytes and renal function. (3) Diastolic CHF Status: Acute Assessment & Plan: Diuresis with Bumex 2mg IV BID. replace K+, monitor lytes and renal function. (4) HTN (hypertension) Status: Chronic Assessment & Plan: Treated by Dr. Olmedo for HTN with unknown medications/ dosages. Stopped taking in May when prescriptions ran out. (5) Obesity, Class III, BMI 40-49.9 (morbid obesity) Status: Chronic (6) History of alcohol dependence Status: Resolved Assessment & Plan: Sober since in 2011 Recommendation A Fib: CCU admission. Diltiazem drip up to 15mg/hr for rate control. NPO after midnight for KHALIDA cardioversion tomorrow at noon. Eliquis 5mg BID for anticoagulation. Dyspnea: Diuresis with Bumex 2mg IV BID. replace K+, monitor lytes and renal function. Diastolic CHF: Diuresis with Bumex 2mg IV BID. replace K+, monitor lytes and renal function. Thank you for allowing us to participate in the care of this patient. We will follow along with you. TIMMY MORRIS [employer] October 19, 2016 15:50
[2016-10-19] MEDS ORDERED: BUMETANIDE 2.5mg INJECTION IV SCH (17:00)
[2016-10-19] MEDS: BUMETANIDE 2.5mg INJECTION IV SCH (17:07)
[2016-10-19] MEDS: POTASSIUM CHLORIDE 20 MEQ TABLET PO SCH (17:54)
--- NOTE | 2016-10-19 19:15 | NUR ---
status Pt has been improving since arriving to CCU. Pt voids frequently in urinal at bedside. Good appetite. Denies pain. Reports breathing is getting better. Will continue to monitor.
[2016-10-19] MEDS: APIXABAN 5 MG TABLET PO SCH (20:35)
[2016-10-19] MEDS: FAMOTIDINE 20 MG TABLET PO SCH (20:36)
[2016-10-20] VITALS (70 sets, daily range): BP systolic 88–159; BP diastolic 55–101; PULSE 59–160; RESP 15–67; TEMP 96–98.1; O2SAT 88–96
--- NOTE | 2016-10-20 | NUR ---
Cardizem Cardizem gtt dropped from 15 mg/hr to 10 mg/hr as SbP is in 90's and HR 70's to 80's.
--- NOTE | 2016-10-20 02:00 | NUR ---
Cardizem Cardizem weaned down to 5 mg/hr as HR 70's to 90's. Will continue to monitor.
[2016-10-20 04:56] LABS: BASOPHILS % (AUTO) 0.1 % (0-2); EOSINOPHILS # (AUTO) 0.2 T/MM3 (0-0.5); EOSINOPHILS % (AUTO) 2.1 % (0-4); HCT - HEMATOCRIT 41.8 % (41-53); HGB - HEMOGLOBIN 13.7 GM/DL (13.5-17.5); IMMATURE GRANULOCYTE # (AUTO) 0.02 T/MM3 (0.00-0.03); IMMATURE GRANULOCYTE % (AUTO) 0.2 % (0.0-0.5); LYMPHOCYTES % (AUTO) 20.1 % (23-45); MEAN CORPUSCULAR HGB 28.7 UUG (26-34); MEAN CORPUSCULAR HGB CONC(MCHC 32.8 GM/DL (31-37); MEAN CORPUSCULAR VOLUME 87.4 UM3 (80-100); MEAN PLATELET VOLUME 13.3 UM3 (9.4-12.4); MONOCYTES # (AUTO) 0.6 T/MM3 (0-0.8); MONOCYTES % (AUTO) 6.2 % (0-9.0); NEUTROPHILS #(AUTO)-ABSOLUTE 7.1 T/MM3 (1.8-7.7); NEUTROPHILS % (AUTO) 71.3 % (33-66); RED BLOOD COUNT 4.78 M/MM3 (4.50-5.90); WBC - WHITE BLOOD COUNT 9.9 T/MM3 (4.5-11.0)
[2016-10-20 05:13] LABS: ANION GAP 15 MEQ/L (5-15); BUN/CREATININE RATIO 20 RATIO (6-26); CALCIUM 9.1 MG/DL (8.4-10.2); CHLORIDE 104 MEQ/L (98-107); CO2 - CARBON DIOXIDE 24 MEQ/L (22-30); CREATININE 0.8 MG/DL (0.8-1.5); GLOMERULAR FILTRATION RATE 95; GLUCOSE 114 MG/DL (75-110); POTASSIUM 4.2 MEQ/L (3.6-5); SODIUM 143 MEQ/L (134-144)
[2016-10-20] MEDS: BUMETANIDE 2.5mg INJECTION IV SCH ×2 (05:40→16:24)
--- NOTE | 2016-10-20 05:52 | NUR ---
Cardizem Cardizem increased to 10 mg/hr as HR creeping up to low 100's to 120. Will continue to monitor.
--- NOTE | 2016-10-20 05:55 | NUR ---
Status Pt slept quite well towards morning. Pt denies pain throughout night. Pt states he has SOA at times, even at rest. Pt on 1.5 liters of O2 to keep sats in 90's. Pt up with assist of 1 to use urinal at bedside. Pt fatigued with minimal activity. Cardizem gtt continues to keep HR under control. Pt alert & oriented x 3. Will continue to monitor.
[2016-10-20] MEDS ORDERED: SALINE FLUSH 10ml SYRINGE ONE (07:38)
--- NOTE | 2016-10-20 08:28 | ECHOF ---
DATE OF PROCEDURE October 19, [address] Sri Rodney This is a two-dimensional echo with spectral Doppler, color-flow and M-mode. It was obtained in a patient with atrial fibrillation with rapid ventricular rate. Left atrium is dilated. Left ventricle end-diastolic dimension is normal. Left ventricle wall thickness is at the upper limits of normal. LV systolic function is normal with ejection fraction of 64%. Right atrium is normal. Right ventricle is normal. Aortic root dimension is normal. Mitral valve annulus is calcified. Mitral valve leaflets are sclerotic with mild mitral regurgitation. Aortic valve shows fibrocalcific changes with no stenosis or insufficiency. Tricuspid valve shows mild tricuspid regurgitation with normal estimated pulmonary artery systolic pressure of 28. Pulmonary valve shows mild pulmonary insufficiency. There is no pericardial effusion. IMPRESSION 1. Technically difficult study. 2. Normal LV systolic function with ejection fraction of 64%. 3. Mitral annulus calcification with mild mitral regurgitation. 4. Aortic sclerosis. 5. Left atrial dilation. 6. Mild pulmonary insufficiency. 7. Mild tricuspid regurgitation with normal estimated pulmonary artery systolic pressure of 28. MTDD
[2016-10-20] MEDS ORDERED: AMIODARONE 150 MG in NORMAL SALINE 100 ML IV ONE ×2 (08:30→18:15)
[2016-10-20] MEDS: AMIODARONE 900 MG in NORMAL SALINE 500 ML IV SCH (08:33)
[2016-10-20] MEDS: APIXABAN 5 MG TABLET PO SCH ×2 (09:00→20:36)
[2016-10-20] MEDS ORDERED: FENTANYL 100mcg/2ml INJECTION IV ONE (09:15)
[2016-10-20] MEDS ORDERED: SALINE FLUSH 10ml SYRINGE IVF ONE (09:15)
[2016-10-20] MEDS ORDERED: ONDANSETRON 4mg/2ml INJECTION IV PRN (09:15)
[2016-10-20] MEDS ORDERED: MAG-AL + SIM LIQUID 30 ML UDC PO PRN (09:15)
[2016-10-20] MEDS ORDERED: PRN ORDERS MC (09:15)
[2016-10-20] MEDS ORDERED: BISACODYL 10 MG SUPPOSITORY RECTALLY PRN (09:15)
[2016-10-20] MEDS ORDERED: MILK OF MAGNESIA 30 ML SUSP PO PRN (09:15)
[2016-10-20] MEDS ORDERED: NITROGLYCERIN 0.4 MG SUBLINGUAL TABLET SL PRN (09:15)
[2016-10-20] MEDS ORDERED: MIDAZOLAM 2mg/2ml INJECTION IV ONE (09:15)
[2016-10-20] MEDS: FAMOTIDINE 20 MG TABLET PO SCH ×2 (10:17→20:36)
[2016-10-20] MEDS: POTASSIUM CHLORIDE 20 MEQ TABLET PO SCH ×2 (10:18→16:28)
--- NOTE | 2016-10-20 10:19 | NUR ---
CATARINO TORIBIO VISITED PT. CM EXPLAINED ROLE AND PROVIDED CONTACT INFORMATION. PT PLANS TO RETURN HOME POST HOSPITAL STAY. PT DENIES NEEDS AT THIS TIME BUT IS AWARE THAT CM WILL ASSIST WITH A SAFE D/C PLAN WE NEAR DISCHARGE. PT IS AWARE THAT IF HE NEEDS OXYGEN AT THE TIME OF D/C THAT CM WILL HELP SET UP. PT IS AWARE TO CONTACT CM IF NEEDS ARISE.
--- NOTE | 2016-10-20 10:26 | NUR ---
Status Pt bathed at 0730 at bedside. Pt performed most of bath Cardioversion/KHALIDA performed at bedside by Dr. Pugh. Pt tolerated well, but did require Bipap post procedure for some sleep apnea/snoring. Pt tolerated bipap well and was on it for approx 1 hour before fully waking up. Pt on 2L NC now. pt's swallow has returned to normal. Denies pain. SR with a rate of 73. Will continue to monitor.
--- NOTE | 2016-10-20 11:23 | PNPDOC ---
Subjective Date DATE: 10/20/16 TIME: 11:11 Subjective F/U: New onset afib with RVR, pulmonary edema, hypoxia. Doing well this morning. Tolerated KHALIDA/Cardioversion this am. Needed BiPAP for respiratory support for several hours afterwards due to somnolence. Feeling much more awake and alert currently. No chest pressure or pain. Not feeling SOA or chest congestion. No cough or pain with breathing. Denies nausea or ab pain. Urinating well - urine output increased with diuretics. No f/c. Objective Vital Signs Vital signs Vital Signs Date Time Temp Pulse Resp B/P Pulse Ox O2 Delivery O2 Flow Rate FiO2 10/20/16 09:45 62 19 120/76 94 Nasal Cannula 4.00 10/20/16 08:50 50 10/20/16 04:00 97.8 Telemetry Rhythm: Atrial Fibrillation Height (Feet): 5 Height (Inches): 5.00 Weight (Kilograms): 122.700 General General Appearance: Alert, Obese, Orientated x 3, Well Nourished, Well Developed, Cooperative, Looks Stated Age Eyes (Brief) Eyes: FOUND: EOMI, PERRL, NOT FOUND: scleral icterus ENMT (Brief) ENMT: FOUND: hearing intact, mucosa moist Neck (Brief) Neck: FOUND: midline, NOT FOUND: nuchal rigidity, spasm Respiratory (Brief) Respiratory: FOUND: clear all ray, equal bilaterally, wheezes (Faint ), NOT FOUND: rales Cardiovascular (Brief) Cardiac: FOUND: regular rate, regular rhythm Abdomen (Brief) Abdominal: FOUND: BS normo active x4, other (Obese), soft, NOT FOUND: distended , tender Extremities (Brief) Extremity : Side: Bilateral Extremity: leg Extremity Finding: FOUND: edema (+1 ), other (SCD in place ) Musculoskeletal (Brief) Musculoskeletal: FOUND: extremities move equally, NOT FOUND: deformity, spasm Integumentary (Brief) Integumentary: FOUND: dry, warm Neurologic (Brief) Neurological: FOUND: cranial 2-12 intact, motor (Intact ) Psychiatric (Brief) Psychiatric: FOUND: alert, attentive, normal affect, oriented Laboratory Laboratory Laboratory Tests 10/19/16 12:39 10/20/16 04:23 Laboratory Tests 10/19/16 12:39 10/20/16 04:23 Assessment & Plan Problems: (1) New onset atrial fibrillation Status: Resolved Assessment & Plan: 10/20 - KHALIDA/Cardioversion (2) Pulmonary edema Status: Acute Qualifiers: Chronicity: acute Qualified Codes: J81.0 - Acute pulmonary edema Assessment & Plan: Suspect secondary to afib/RVR (3) Diastolic CHF Status: Acute Qualifiers: Congestive heart failure chronicity: acute on chronic Qualified Codes: I50.33 - Acute on chronic diastolic (congestive) heart failure (4) Dyspnea Status: Acute Qualifiers: Dyspnea type: dyspnea on exertion Qualified Codes: R06.09 - Other forms of dyspnea (5) HTN (hypertension) Status: Chronic (6) CAD (coronary artery disease) Status: Chronic (7) GERD (gastroesophageal reflux disease) Status: Chronic (8) Obesity, Class III, BMI 40-49.9 (morbid obesity) Status: Chronic (9) History of alcohol dependence Status: Resolved Assessment & Plan: Quit October 2014 Plan/Intensity of Service Amiodarone Bolus initiated by Dr Pugh to help maintain NSR post cardioversion. Continue with Eliquis for stroke prevention post cardioversion. Continue Bumex to help motivate fluid and resolve pulmonary edema. Wean O2 as able. Recheck CXR in am due to pulmonary edema and diuretic use. Will check BMP and Mg in am due to diuretic use. Repeat CBC in am secondary to anticoagulation. Case discussed with nursing, CM, and Rhonda with Dr Marsh. Time spent with pt care 25 minutes. DVT Prophylaxis: SCD'S, other (Eliquis ) Code Status Full Code Hospital Course Summary Disclaimer The hospital course summary below is not to be considered part of the above Progress Note. Hospital Course Summary 10/19 Admit patient to inpatient status under the care of Dr Rodney for new-onset atrial fibrillation with RVR Spoke with Dr Pugh about cardiology consultation. He recommends diuresing with schedule Bumex every 8 hours. Patient initially received Lasix 20mg IV at 1245. Will continue on Cardizem drip at 10 milligrams per hour for rate control as he continues in atrial fibrillation. Continue to monitor on cardiac telemetry. Will obtain complete echocardiogram Obtain serial troponin every 6 hours 3. Although patient reports no past medical history old records revel history of coronary artery disease, GERD, [place], hypertension and alcohol abuse. It is also reported that a Hgb A1c was obtained in 2014 which was found to be elevated over 11. We will recheck Hgb A1C on admission now. Taz hose and SCDs to bilateral lower ext to assist with peripheral edema. Oxygen therapy as needed to maintain saturations greater then 92% CHADS2 score 2-3 , indicating a moderate risk of stroke predictor. Recommend initiation of anticoagulation. Cardiology recommends Eliquis 5 mg BID. Will initiate on admission. Will recheck BMP tomorrow morning to follow electrolytes Again patient requests full code and this order is written Will discuss further orders and plan with attending, Dr Rodney 10/20 Doing well this morning. Tolerated KHALIDA/Cardioversion this am. Needed BiPAP for respiratory support for several hours afterwards due to somnolence. Feeling much more awake and alert currently. No chest pressure or pain. Not feeling SOA or chest congestion. No cough or pain with breathing. Denies nausea or ab pain. Urinating well - urine output increased with diuretics. No f/c. Amiodarone bolus initiated by Dr Pugh to help maintain NSR post cardioversion. Continue with Eliquis for stroke prevention post cardioversion. Continue Bumex to help motivate fluid and resolve pulmonary edema. Wean O2 as able. Recheck CXR in am due to pulmonary edema and diuretic use. Will check BMP and Mg in am due to diuretic use. Repeat CBC in am secondary to anticoagulation. GASTON WHITE MD October 20, 2016 11:14
--- NOTE | 2016-10-20 11:32 | ECHOF ---
DATE OF PROCEDURE: October 20, 2016 The patient is a pleasant 71-year-old gentleman who was admitted with symptomatic atrial fibrillation and congestive heart failure and was referred for further evaluation by transesophageal echocardiogram to rule out intracardiac thrombus or mass prior to cardioversion. Informed consent was obtained after explaining the procedure and the potential risks to the patient who agreed to proceed with the procedure. PROCEDURE 1. Transesophageal echocardiogram. 2. DC cardioversion. TECHNIQUE Conscious sedation was performed using Versed and fentanyl. Cetacaine spray was used for pharyngeal anesthesia. Probe was advanced into the esophagus and stomach and images were obtained in multiple planes. Left atrium is dilated. Left ventricle end-diastolic dimension is normal. Left ventricle wall thickness is at the upper limits of normal. LV systolic function is normal with ejection fraction of about 65%. Right atrium is dilated. Right ventricle is normal. There is no thrombus in left atrium, left atrial appendage or left ventricle. Mitral valve is morphologically normal with mild mitral regurgitation. Aortic valve is a trileaflet structure with fibrocalcific changes with no stenosis or insufficiency. Tricuspid valve shows mild tricuspid regurgitation with normal morphology. Pulmonary valve appears to be morphologically normal with mild pulmonary insufficiency. There is no pericardial effusion. Agitated saline was injected which showed no evidence of [id number] shunt. Descending thoracic aorta shows mild atherosclerosis. IMPRESSION 1. No intracardiac thrombus or mass. 2. Normal LV systolic function with ejection fraction of 65%. 3. Biatrial dilation. 4. Mild mitral regurgitation. 5. Aortic sclerosis. 6. Mild tricuspid regurgitation. 7. Mild pulmonary insufficiency. 8. Mild atherosclerosis of the descending thoracic aorta. After reviewing the images, we decided to proceed with cardioversion. Anterior-posterior Zoll pads were applied. 360 joules of energy was delivered in synchronized manner and patient converted from atrial fibrillation to sinus rhythm. He tolerated the procedure well with no complications. IMPRESSION 1. Successful DC cardioversion of atrial fibrillation to sinus rhythm. PLAN Will continue anticoagulation and start him on antiarrhythmics to maintain sinus. [facility]
--- NOTE | 2016-10-20 15:22 | NUR ---
TRANSFER RECEIVED PATIENT FROM CCU TO ROOM 155. PATIENT IS ALERT AND ORIENTED. DENIES PAIN OR ANY OTHER CONCERNS AT THIS TIME. CURRENTLY ON AMIODARONE AT 16.6ML/HR DRIP POST AFIB CONVERSION. PATIENT IS CURRENTLY SINUS RHYTHM ON TELE.
--- NOTE | 2016-10-20 15:30 | NUR ---
Transfer Pt transferred from CCU bed 1 to medical room 155 via WC. Report given at bedside. All personal belongings sent with pt.
--- NOTE | 2016-10-20 17:10 | NUR ---
RHYTHM PATIENT HAS CONVERTED BACK TO ATRIAL FIBRILLATION AND RAPID VENTRICULAR RHYTHM FROM SINUS RHYTHM TORIBIO YE APRN PAGED FOR NOTIFICATION.
--- NOTE | 2016-10-20 17:21 | NUR ---
CARDIZEM RECEIVED NEW ORDER OF CARDIZEM BOLUS AND DRIP.
[2016-10-20] MEDS: DILTIAZEM 125 MG in NORMAL SALINE 125 ML IV SCH (17:45)
--- NOTE | 2016-10-20 18:02 | NUR ---
HOLD CARDIZEM AND TRANSFER PATIENT IS NOW IN ATRIAL FLUTTER AND ATRIAL FIBRILLATION IN HIGH 90S AND LOW 100S. CARDIZEM AND TRANSFER AT THIS TIME PER TORIBIO YE PENDING CONSULTATION WITH DR. VILLATORO. PATIENT REPORTS RECEIVING DISTRESS PHONE CALL WHICH COULD HAVE BEEN THE CAUSE OF RHYTHM CHANGE.
[2016-10-20] MEDS: DILTIAZEM 25mg/5ml INJECTION IV ONE ×2 (18:05→18:10)
--- NOTE | 2016-10-20 18:40 | NUR ---
AMIODARONE 83ML(150MG) OF 900MG IN 500ML BOLUS ADMIN OVER 10MIN FOR A. FIB AND A. FLUTTER RHYTHM ORDERED
--- NOTE | 2016-10-20 19:00 | NUR ---
SINUS RHYTHM PATIENT CONVERTED BACK SINUS RHYTHM POST AMIODARONE 150 MG BOLUS ADMINISTRATION
--- NOTE | 2016-10-20 20:00 | NUR ---
RESP CRACKLES BASES, DENIES DYSPNEA AT REST
--- NOTE | 2016-10-20 20:40 | NUR ---
ELIM ASSISTED TO STAND TO VOID. DENIES DIZZINESS UP
[2016-10-21] VITALS: O2SAT 88
[2016-10-21 02:00] VITALS: O2SAT 90
[2016-10-21 04:00] VITALS: BP 139/86; PULSE 81; RESP 20; TEMP 96; O2SAT 97
[2016-10-21] MEDS: AMIODARONE 900 MG in NORMAL SALINE 500 ML IV SCH (04:10)
--- NOTE | 2016-10-21 05:01 | NUR ---
REST SLEEPS FOR LONG INTERVALS, RESP. UNLABORED AT REST. O2 SATS MONITORED PER RT TONIGHT
[2016-10-21 05:04] LABS: BASOPHILS % (AUTO) 0.2 % (0-2); EOSINOPHILS # (AUTO) 0.2 T/MM3 (0-0.5); EOSINOPHILS % (AUTO) 1.8 % (0-4); HCT - HEMATOCRIT 41.6 % (41-53); HGB - HEMOGLOBIN 13.5 GM/DL (13.5-17.5); IMMATURE GRANULOCYTE # (AUTO) 0.02 T/MM3 (0.00-0.03); IMMATURE GRANULOCYTE % (AUTO) 0.2 % (0.0-0.5); LYMPHOCYTES # (AUTO) 1.8 T/MM3 (1-4.8); LYMPHOCYTES % (AUTO) 17.3 % (23-45); MEAN CORPUSCULAR HGB 28.7 UUG (26-34); MEAN CORPUSCULAR HGB CONC(MCHC 32.5 GM/DL (31-37); MEAN CORPUSCULAR VOLUME 88.5 UM3 (80-100); MEAN PLATELET VOLUME 13.1 UM3 (9.4-12.4); MONOCYTES # (AUTO) 0.7 T/MM3 (0-0.8); NEUTROPHILS #(AUTO)-ABSOLUTE 7.8 T/MM3 (1.8-7.7); NEUTROPHILS % (AUTO) 73.5 % (33-66); WBC - WHITE BLOOD COUNT 10.6 T/MM3 (4.5-11.0)
[2016-10-21 05:22] LABS: ANION GAP 15 MEQ/L (5-15); BUN/CREATININE RATIO 23 RATIO (6-26); CALCIUM 9.2 MG/DL (8.4-10.2); CHLORIDE 101 MEQ/L (98-107); CO2 - CARBON DIOXIDE 28 MEQ/L (22-30); GLOMERULAR FILTRATION RATE 74; GLUCOSE 123 MG/DL (75-110); MAGNESIUM 2.1 MG/DL (1.6-2.3); POTASSIUM 4.1 MEQ/L (3.6-5); SODIUM 144 MEQ/L (134-144)
[2016-10-21] MEDS: BUMETANIDE 2.5mg INJECTION IV SCH (05:41)
[2016-10-21 07:25] VITALS: BP 139/91; PULSE 74; RESP 18; TEMP 96.8; O2SAT 95
[2016-10-21] MEDS: POTASSIUM CHLORIDE 20 MEQ TABLET PO SCH (08:15)
[2016-10-21] MEDS: FAMOTIDINE 20 MG TABLET PO SCH (08:15)
[2016-10-21] MEDS: APIXABAN 5 MG TABLET PO SCH (08:15)
--- NOTE | 2016-10-21 08:25 | DI ---
INDICATION: ITS.REASON: F/U Pulmonary edema PROCEDURE: CHEST 2-VIEWS UPRIGHT (PA \T\ LAT) Encounter: Initial COMPARISON: 10/19/2016 FINDINGS: Pulmonary edema has significantly improved. Small bilateral pleural effusions are stable. Improved aeration of the lower lobes. No pneumothorax. The heart size, mediastinal contours and pulmonary vascularity are within normal limits. IMPRESSION: Improved pulmonary edema with residual small effusions. .
[2016-10-21] MEDS ORDERED: BUMETANIDE 1 MG TABLET PO ONE (08:30)
[2016-10-21] MEDS ORDERED: POTASSIUM CHLORIDE 20 MEQ TABLET PO SCH (09:00)
[2016-10-21] MEDS ORDERED: AMIODARONE 200 MG TABLET PO SCH (09:00)
--- NOTE | 2016-10-21 09:08 | PNPDOC ---
Subjective Date DATE: 10/21/16 TIME: 08:40 Celine Dewitt is seen in his room on Medical. He denies chest pain or pressure, states his breathing is improved since admission, on room air now. Objective Vital Signs Vital signs Vital Signs 10/20/16 10/20/16 10/21/16 10/21/16 21:16 23:00 00:00 02:00 Temp 96.0 Pulse 66 76 65 77 Resp 20 18 18 B/P 145/101 Pulse Ox 91 96 88 90 O2 Delivery Room Air Room Air Room Air Room Air 10/21/16 10/21/16 04:00 07:25 Temp 96.0 96.8 Pulse 81 74 Resp 20 18 B/P 139/86 139/91 Pulse Ox 97 95 O2 Delivery Room Air Room Air Telemetry Rhythm: Sinus Rhythm Height (Feet): 5 Height (Inches): 5.00 Weight (Kilograms): 121.200 General Alert, Obese, Orientated x 3, Cooperative, No Acute Distress ENMT (Brief) mucosa moist Neck (Brief) NOT FOUND: JVD, carotid bruits Respiratory (Brief) clear all ray, equal bilaterally, NOT FOUND: rales, wheezes Cardiovascular (Brief) pedal edema, regular rate, regular rhythm, NOT FOUND: click, gallop, murmur, rub Abdomen (Brief) BS normo active x4, soft, NOT FOUND: tender Integumentary (Brief) dry, pink, warm Psychiatric (Brief) alert, attentive, normal affect, oriented Laboratory Laboratory Laboratory Tests Test 10/19/16 12:39 10/19/16 18:54 10/20/16 00:36 10/20/16 04:23 White Blood Count 9.4T/MM3 9.9T/MM3 Red Blood Count 4.66M/MM3 4.78M/MM3 Hemoglobin 13.6GM/DL 13.7GM/DL Hematocrit 41.1% 41.8% Mean Corpuscular Volume 88.2UM3 87.4UM3 Mean Corpuscular Hemoglobin 29.2UUG 28.7UUG Mean Corpuscular Hemoglobin Concent 33.1GM/DL 32.8GM/DL RDW Standard Deviation 47.3FL 46.7FL Platelet Count 163T/MM3 170T/MM3 Mean Platelet Volume 12.8UM3 13.3UM3 Immature Granulocyte % (Auto) 0.2% 0.2% Neutrophils (%) (Auto) 70.3% 71.3% Lymphocytes (%) (Auto) 21.7% 20.1% Monocytes (%) (Auto) 5.9% 6.2% Eosinophils (%) (Auto) 1.8% 2.1% Basophils (%) (Auto) 0.1% 0.1% Absolute Immature Granulocyte (auto 0.02T/MM3 0.02T/MM3 Absolute Neutrophils (auto) 6.6T/MM3 7.1T/MM3 Absolute Lymphocytes (auto) 2.1T/MM3 2.0T/MM3 Absolute Monocytes (auto) 0.6T/MM3 0.6T/MM3 Absolute Eosinophils (auto) 0.2T/MM3 0.2T/MM3 Absolute Basophils (auto) 0.0T/MM3 0.0T/MM3 D-Dimer 212NG/ML Turbidity < 20 < 20 Sodium Level 145MEQ/L 143MEQ/L Potassium Level 3.9MEQ/L 4.2MEQ/L Chloride Level 107MEQ/L 104MEQ/L Carbon Dioxide Level 23MEQ/L 24MEQ/L Anion Gap 15MEQ/L 15MEQ/L Blood Urea Nitrogen 16.0MG/DL 16.0MG/DL Creatinine 0.8MG/DL 0.8MG/DL Glomerular Filtration Rate Calc 95 95 BUN/Creatinine Ratio 20RATIO 20RATIO Glucose Level 118MG/DL 114MG/DL Hemoglobin A1c 6.5% Calculated Osmolality 281MOSM/KG 277MOSM/KG Calcium Level 8.8MG/DL 9.1MG/DL Magnesium Level 1.9MG/DL Total Bilirubin 1.60MG/DL Icterus Index < 2 < 2 Aspartate Amino Transf (AST/SGOT) 24U/L Alanine Aminotransferase (ALT/SGPT) 39U/L Alkaline Phosphatase 81U/L Troponin I < 0.012ng/ml < 0.012ng/ml < 0.012ng/ml [id number]-Type Natriuretic Peptide 679PG/ML Total Protein 7.4G/DL Albumin 4.4G/DL Globulin 3.0G/DL Albumin/Globulin Ratio 1.5RATIO Thyroid Stimulating Hormone (TSH) 1.23MIU/L Chemistry Specimen Hemolysis < 15 25 < 15 45 Test 10/21/16 04:31 White Blood Count 10.6T/MM3 Red Blood Count 4.70M/MM3 Hemoglobin 13.5GM/DL Hematocrit 41.6% Mean Corpuscular Volume 88.5UM3 Mean Corpuscular Hemoglobin 28.7UUG Mean Corpuscular Hemoglobin Concent 32.5GM/DL RDW Standard Deviation 47.0FL Platelet Count 167T/MM3 Mean Platelet Volume 13.1UM3 Immature Granulocyte % (Auto) 0.2% Neutrophils (%) (Auto) 73.5% Lymphocytes (%) (Auto) 17.3% Monocytes (%) (Auto) 7.0% Eosinophils (%) (Auto) 1.8% Basophils (%) (Auto) 0.2% Absolute Immature Granulocyte (auto 0.02T/MM3 Absolute Neutrophils (auto) 7.8T/MM3 Absolute Lymphocytes (auto) 1.8T/MM3 Absolute Monocytes (auto) 0.7T/MM3 Absolute Eosinophils (auto) 0.2T/MM3 Absolute Basophils (auto) 0.0T/MM3 Turbidity < 20 Sodium Level 144MEQ/L Potassium Level 4.1MEQ/L Chloride Level 101MEQ/L Carbon Dioxide Level 28MEQ/L Anion Gap 15MEQ/L Blood Urea Nitrogen 23.0MG/DL Creatinine 1.0MG/DL Glomerular Filtration Rate Calc 74 BUN/Creatinine Ratio 23RATIO Glucose Level 123MG/DL Calculated Osmolality 282MOSM/KG Calcium Level 9.2MG/DL Magnesium Level 2.1MG/DL Icterus Index < 2 Chemistry Specimen Hemolysis < 15 Laboratory Tests 10/21/16 04:31 Laboratory Tests 10/21/16 04:31 EKG SR, occasional PVCs, QT/QTc 413/441 Medications Current Medications Furosemide (Lasix) 20 mg O ONCE IV Last administered on 10/19/16 12:41; Start 10/19/16 at 12:45; Stop 10/19/16 at 12:46; Status DC Diltiazem HCl (Cardizem) 20 mg O ONCE IV Last administered on 10/19/16 13:19 ; Start 10/19/16 at 13:15; Stop 10/19/16 at 13:16; Status DC Acetaminophen 500 mg 500 mg Q4H PRN PO PAIN; Start 10/19/16 at 14:45 Diltiazem HCl/ Sodium Chloride (Cardizem 125 Mg/ 25 ml Injection/ NS) 125 ml @ 10 mls/hr [id number] IV Last administered on 10/19/16 20:36; Start 10/19/16 at 14 :45; Stop 10/20/16 at 08:25; Status DC Bumetanide (Bumex Inj. 2.5 Mg/10 ml) 2 mg Q12H IV Last administered on 05:41; Start 10/19/16 at 17:00; Stop 10/21/16 at 08:38; Status DC Apixaban (Eliquis) 5 mg BID PO Last administered on 10/21/16 08:15; Start at 21:00 Famotidine (Pepcid) 20 mg BID PO Last administered on 10/21/16 08:15; Start at 21:00 Sodium Chloride 10 ml 10 ml STK-MED ONCE .ROUTE ; Start 10/20/16 at 07:38; Stop 10/20/16 at 07:39; Status DC Amiodarone HCl 150 mg/Sodium Chloride 103 ml @ 600 mls/hr NOW ONCE IV Last administered on 10/20/16 08:33; Start 10/20/16 at 08:30; Stop 10/20/16 at 08:40 ; Status DC Amiodarone HCl/ Sodium Chloride (Cordarone/NS) 518 ml @ 33.33 mls/ hr [id number] IV Last administered on 10/21/16 04:10; Start 10/20/16 at 08:30; Stop at 08:38; Status DC Miscellaneous Medication (May use PRN orders) PRN PRN MC ; Start 10/20/16 at 09:15 Magnesium Hydroxide (Mom) 30 ml DAILY PRN PO CONSTIPATION; Start 10/20/16 at 09 :15 Bisacodyl (Dulcolax) 10 mg DAILY PRN RECTALLY CONSTIPATION; Start 10/20/16 at 09:15 Al Hydroxide/Mg Hydroxide (Maalox) 30 ml Q3H PRN PO INDIGESTION; Start at 09:15 Nitroglycerin (Nitrostat) 0.4 mg Q5M PRN SL CHEST PAIN; Start 10/20/16 at 09:15 Ondansetron HCl (Zofran) 4 mg Q6H PRN IV NAUSEA; Start 10/20/16 at 09:15 Fentanyl (Fentanyl) 100 mcg STK-MED ONCE IV ; Start 10/20/16 at 09:15; Stop at 09:16; Status DC Sodium Chloride (Iv Flush) 10 ml STK-MED ONCE IVF ; Start 10/20/16 at 09:15; Stop 10/20/16 at 09:16; Status DC Midazolam HCl (Versed) 6 mg STK-MED ONCE IV ; Start 10/20/16 at 09:15; Stop at 09:16; Status DC Diltiazem HCl 10 mg 10 mg O ONCE IV ; Start 10/20/16 at 17:45; Stop 10/20/16 at 17:46; Status DC Diltiazem HCl 125 mg/Sodium Chloride 125 ml @ 5 mls/hr Q24H IV ; Start 10/20/16 at 17:45; Stop 10/21/16 at 08:38; Status DC Amiodarone HCl/ Sodium Chloride (Amiodarone/NS) 103 ml @ 600 mls/hr NOW ONCE IV ; Start 10/20/16 at 18:15; Stop 10/20/16 at 18:35; Status DC Potassium Chloride (Kdur) 20 meq DAILY PO ; Start 10/21/16 at 09:00; Status UNV Amiodarone HCl (Pacerone) 200 mg DAILY PO ; Start 10/21/16 at 09:00; Status UNV Metoprolol Tartrate (Lopressor) 25 mg BIDWM PO ; Start 10/21/16 at 08:30; Status UNV Bumetanide (BUMEX 1 mg TAB) 2 mg O ONCE PO ; Start 10/21/16 at 08:30; Stop at 08:31; Status UNV Radiology DATE OF PROCEDURE: October 20, 2016 The patient is a pleasant 71-year-old gentleman who was admitted with symptomatic atrial fibrillation and congestive heart failure and was referred for further evaluation by transesophageal echocardiogram to rule out intracardiac thrombus or mass prior to cardioversion. Informed consent was obtained after explaining the procedure and the potential risks to the patient who agreed to proceed with the procedure. PROCEDURE 1. Transesophageal echocardiogram. 2. DC cardioversion. TECHNIQUE Conscious sedation was performed using Versed and fentanyl. Cetacaine spray was used for pharyngeal anesthesia. Probe was advanced into the esophagus and stomach and images were obtained in multiple planes. Left atrium is dilated. Left ventricle end-diastolic dimension is normal. Left ventricle wall thickness is at the upper limits of normal. LV systolic function is normal with ejection fraction of about 65%. Right atrium is dilated. Right ventricle is normal. There is no thrombus in left atrium, left atrial appendage or left ventricle. Mitral valve is morphologically normal with mild mitral regurgitation. Aortic valve is a trileaflet structure with fibrocalcific changes with no stenosis or insufficiency. Tricuspid valve shows mild tricuspid regurgitation with normal morphology. Pulmonary valve appears to be morphologically normal with mild pulmonary insufficiency. There is no pericardial effusion. Agitated saline was injected which showed no evidence of [id number] shunt. Descending thoracic aorta shows mild atherosclerosis. IMPRESSION 1. No intracardiac thrombus or mass. 2. Normal LV systolic function with ejection fraction of 65%. 3. Biatrial dilation. 4. Mild mitral regurgitation. 5. Aortic sclerosis. 6. Mild tricuspid regurgitation. 7. Mild pulmonary insufficiency. 8. Mild atherosclerosis of the descending thoracic aorta. After reviewing the images, we decided to proceed with cardioversion. Anterior- posterior Zoll pads were applied. 360 joules of energy was delivered in synchronized manner and patient converted from atrial fibrillation to sinus rhythm. He tolerated the procedure well with no complications. [place], [place] [address] Name: MITRA LIPSCOMB Unit #: [id number] Signed Page 1 of 1 DIAGNOSTIC IMAGING REPORT Report #: [id number] Dictated By: WINSOME SHAH MD 10/21/16819 Signed date/time: 10/21/16820 Transcribed By: TRANSCRIPT [employer] 10/21/16819 cc: MARKELL MELARA MD [address] [address] [phone] Dictated By: WINSOME SHAH MD 10/21/16819 Signed date/time: 10/21/16820 Transcribed By: TRANSCRIPT [employer] 10/21/16819 cc: MARKELL MELARA MD DATE OF EXAM: 10/21/16 ORDERING DOCTOR: GASTON WHITE MD TYPE OF EXAM: CHEST, PA & LATERAL REASON FOR EXAM: F/U Pulmonary edema INDICATION: ITS.REASON: F/U Pulmonary edema PROCEDURE: CHEST 2-VIEWS UPRIGHT (PA \T\ LAT) Encounter: Initial COMPARISON: 10/19/2016 FINDINGS: Pulmonary edema has significantly improved. Small bilateral pleural effusions are stable. Improved aeration of the lower lobes. No pneumothorax. The heart size, mediastinal contours and pulmonary vascularity are within normal limits. IMPRESSION: Improved pulmonary edema with residual small effusions. . Assessment & Plan Problems: (1) New onset atrial fibrillation Status: Resolved Assessment & Plan: Change Amiodarone to PO today, continue Eliquis 5mg BID for anticoagulation (2) Dyspnea Status: Resolved Qualifiers: Dyspnea type: dyspnea on exertion Qualified Codes: R06.09 - Other forms of dyspnea Assessment & Plan: improved with diuresis. (3) Diastolic CHF Status: Acute Qualifiers: Congestive heart failure chronicity: acute on chronic Qualified Codes: I50.33 - Acute on chronic diastolic (congestive) heart failure Assessment & Plan: Change Bumex to 2mg PO daily with Potassium 20meq daily. (4) HTN (hypertension) Status: Chronic Qualifiers: Hypertension type: essential hypertension Qualified Codes: I10 - Essential (primary) hypertension Assessment & Plan: Start metoprolol 25mg PO BID (5) Obesity, Class III, BMI 40-49.9 (morbid obesity) Status: Chronic (6) History of alcohol dependence Status: Resolved Assessment & Plan: Sober since in 2011 Plan/Intensity of Service 10/19/16 A Fib: CCU admission. Diltiazem drip up to 15mg/hr for rate control. NPO after midnight for KHALIDA cardioversion tomorrow at noon. Eliquis 5mg BID for anticoagulation. Dyspnea: Diuresis with Bumex 2mg IV BID. replace K+, monitor lytes and renal function. Diastolic CHF: Diuresis with Bumex 2mg IV BID. replace K+, monitor lytes and renal function. Thank you for allowing us to participate in the care of this patient. We will follow along with you. 10/20/16 KHALIDA/ DCCV with successful conversion, started Amiodarone IV drip. 10/21/16 Change Amiodarone to PO today, continue Eliquis 5mg BID for anticoagulation Change Bumex to 2mg PO daily with Potassium 20meq daily. Start metoprolol 25mg PO BID. Eliquis samples, discount card and follow- up appointment card given for discharge. TIMMY MORRIS APRN October 21, 2016 08:59
--- NOTE | 2016-10-21 10:29 | PNPDOC ---
Subjective Date DATE: 10/21/16 TIME: 10:18 Subjective F/U: New onset afib with RVR, pulmonary edema, hypoxia. Doing well this morning. Breathing much better-not feeling SOA or congested. No chest pressure or pain. Denies ab pain or nausea. Not feeling dizzy or unsteady when up. Ambulating well. No f/c. Objective Vital Signs Vital signs Vital Signs Date Time Temp Pulse Resp B/P Pulse Ox O2 Delivery O2 Flow Rate FiO2 10/21/16 07:25 96.8 74 18 139/91 95 Room Air 10/20/16 15:04 30 10/20/16 11:15 2.00 Telemetry Rhythm: Sinus Rhythm Height (Feet): 5 Height (Inches): 5.00 Weight (Kilograms): 121.200 General General Appearance: Alert, Obese, Orientated x 3, Well Nourished, Well Developed, Cooperative, No Acute Distress, Looks Stated Age Eyes (Brief) Eyes: FOUND: EOMI, PERRL, NOT FOUND: scleral icterus ENMT (Brief) ENMT: FOUND: hearing intact, mucosa moist Neck (Brief) Neck: FOUND: midline, NOT FOUND: nuchal rigidity, spasm Respiratory (Brief) Respiratory: FOUND: clear all ray, equal bilaterally, NOT FOUND: rales, wheezes Cardiovascular (Brief) Cardiac: FOUND: pedal edema (+1 ), regular rate, regular rhythm Abdomen (Brief) Abdominal: FOUND: BS normo active x4, soft, NOT FOUND: distended, tender Extremities (Brief) Extremity : Side: Bilateral Extremity: leg Extremity Finding: FOUND: edema (+1 ), other (SCD ) Musculoskeletal (Brief) Musculoskeletal: FOUND: extremities move equally, NOT FOUND: deformity, loss of motion, spasm, tenderness Integumentary (Brief) Integumentary: FOUND: dry, warm Neurologic (Brief) Neurological: FOUND: cranial 2-12 intact, motor (Intact ) Psychiatric (Brief) Psychiatric: FOUND: alert, attentive, normal affect, oriented Laboratory Laboratory Laboratory Tests 10/19/16 12:39 10/20/16 04:23 10/21/16 04:31 Laboratory Tests 10/19/16 12:39 10/20/16 04:23 10/21/16 04:31 Assessment & Plan Problems: (1) New onset atrial fibrillation Status: Resolved Assessment & Plan: 10/20 - KHALIDA/Cardioversion - Amiodarone started post cardioversion. (2) Pulmonary edema Status: Resolved Qualifiers: Chronicity: acute Qualified Codes: J81.0 - Acute pulmonary edema Assessment & Plan: Suspect secondary to afib/RVR - repeat CXR on 10/21 shows resolution. (3) Diastolic CHF Status: Acute Qualifiers: Congestive heart failure chronicity: acute on chronic Qualified Codes: I50.33 - Acute on chronic diastolic (congestive) heart failure (4) Dyspnea Status: Resolved Qualifiers: Dyspnea type: dyspnea on exertion Qualified Codes: R06.09 - Other forms of dyspnea Assessment & Plan: Resolved with diuresis (5) HTN (hypertension) Status: Chronic Qualifiers: Hypertension type: essential hypertension Qualified Codes: I10 - Essential (primary) hypertension (6) CAD (coronary artery disease) Status: Chronic (7) GERD (gastroesophageal reflux disease) Status: Chronic Qualifiers: Esophagitis presence: without esophagitis Qualified Codes: K21.9 - Gastro- esophageal reflux disease without esophagitis (8) Obesity, Class III, BMI 40-49.9 (morbid obesity) Status: Chronic (9) History of alcohol dependence Status: Resolved Assessment & Plan: Quit October 2014 Plan/Intensity of Service Will d/c to home - stable condition. Continue with Eliquis for anticoagulation - stop ASA. Continue amiodarone and metoprolol for heart rate control. Continue Bumex and potassium to help edema and diastolic heart failure. CHF instructions to be given by nursing. F/U with Dr Pugh on 11/04 at 2:20pm Will have CM work to establish PCP for patient. See orders for details. Case discussed with CM and Rhonda Izaguirre APRN with Dr Marsh. Time spent with pt care and discharge 35 minutes. DVT Prophylaxis: SCD'S, other (Eliquis ) Code Status Full Code Hospital Course Summary Disclaimer The hospital course summary below is not to be considered part of the above Progress Note. Hospital Course Summary 10/19 Admit patient to inpatient status under the care of Dr Rodney for new-onset atrial fibrillation with RVR Spoke with Dr Pugh about cardiology consultation. He recommends diuresing with schedule Bumex every 8 hours. Patient initially received Lasix 20mg IV at 1245. Will continue on Cardizem drip at 10 milligrams per hour for rate control as he continues in atrial fibrillation. Continue to monitor on cardiac telemetry. Will obtain complete echocardiogram Obtain serial troponin every 6 hours 3. Although patient reports no past medical history old records revel history of coronary artery disease, GERD, [place], hypertension and alcohol abuse. It is also reported that a Hgb A1c was obtained in 2014 which was found to be elevated over 11. We will recheck Hgb A1C on admission now. Taz hose and SCDs to bilateral lower ext to assist with peripheral edema. Oxygen therapy as needed to maintain saturations greater then 92% CHADS2 score 2-3 , indicating a moderate risk of stroke predictor. Recommend initiation of anticoagulation. Cardiology recommends Eliquis 5 mg BID. Will initiate on admission. Will recheck BMP tomorrow morning to follow electrolytes Again patient requests full code and this order is written Will discuss further orders and plan with attending, Dr Rodney 10/20 Doing well this morning. Tolerated KHALIDA/Cardioversion this am. Needed BiPAP for respiratory support for several hours afterwards due to somnolence. Feeling much more awake and alert currently. No chest pressure or pain. Not feeling SOA or chest congestion. No cough or pain with breathing. Denies nausea or ab pain. Urinating well - urine output increased with diuretics. No f/c. Amiodarone bolus initiated by Dr Pugh to help maintain NSR post cardioversion. Continue with Eliquis for stroke prevention post cardioversion. Continue Bumex to help motivate fluid and resolve pulmonary edema. Wean O2 as able. Recheck CXR in am due to pulmonary edema and diuretic use. Will check BMP and Mg in am due to diuretic use. Repeat CBC in am secondary to anticoagulation. Transfer to medical floor as stable and bed needed for more critical patient. 10/21 Doing well this morning. Breathing much better-not feeling SOA or congested. No chest pressure or pain. Denies ab pain or nausea. Not feeling dizzy or unsteady when up. Ambulating well. No f/c. CXR shows resolution of pulmonary edema. Will d/c to home - stable condition. Continue with Eliquis for anticoagulation - stop ASA. Continue amiodarone and metoprolol for heart rate control. Continue Bumex and potassium to help edema and diastolic heart failure. CHF instructions to be given by nursing. F/U with Dr Pugh on 11/04 at 2:20pm Will have CM work to establish PCP for patient. See orders for details. GASTON WHITE MD October 21, 2016 10:22
[2016-10-21] MEDS ORDERED: BUME1TAB17 PO (10:37)
[2016-10-21] MEDS ORDERED: AMIO200T7 PO (10:37)
[2016-10-21] MEDS ORDERED: METO25TA6 PO (10:37)
[2016-10-21] MEDS ORDERED: APIX5TAB PO (10:37)
[2016-10-21] MEDS ORDERED: POTA20TA10 PO (10:37)
--- NOTE | 2016-10-21 10:55 | NUR ---
CM CM VISITED WITH PT. PT IS HOPING TO RETURN HOME TODAY. PT DENIES NEEDS AT THIS TIME. PT STATES HIS NEIGHBORS HELP HIM IF NEEDED AND ONE IS A PHYSICAL THERAPIST. PT HAS SAMPLE OF ELIQUIS PROVIDED BY CARDIOLOGY. PT HAS NO MEDICATIONS COST CONCERNS. CM DISCUSSED PT NEED FOR A PRIMARY DOCTOR AND PROVIDED PT WITH A LIST OF LOCAL DOCTORS. CM EXPLAINED THE IMPORTANCE. PT PLANS TO FOLLOW UP AND FIND A DOCTOR. PT STATES THAT HE WILL CONTACT CM IF NEEDS ARISE.
--- NOTE | 2016-10-21 11:22 | NUR ---
Discharge Patient discharged to home. Instructions gone over with patient, questions answered. Patient wishes for prescriptions to be called in. IV dc'd, cath intact. Patient feels a lot better then when admitted.
--- NOTE | 2016-10-21 11:35 | NUR ---
Discharge Patient discharged. Accompanied by staff.
--- NOTE | 2016-10-21 11:59 | NUR ---
Prescriptions Prescriptions called into [facility] by Carmen BENITO.
[2016-10-22] MEDS ORDERED: POTASSIUM CHLORIDE 20 MEQ TABLET PO SCH (08:00)
[2016-10-22] MEDS ORDERED: BUMETANIDE 1 MG TABLET PO SCH (09:00)
--- NOTE | 2016-10-22 12:16 | DSF ---
ADMISSION DIAGNOSIS Atrial fibrillation with rapid ventricular response. DISCHARGE DIAGNOSIS Atrial fibrillation with rapid ventricular response - resolved post KHALIDA/cardioversion. ASSOCIATED CONDITIONS AND COMPLICATIONS Pulmonary edema. Dyspnea. Acute diastolic heart failure. Coronary artery disease. Hypertension. GERD Morbid obesity with BMI 44.5. History of alcohol dependency - Patient has been sober for the past [address] Pugh - Cardiology PROCEDURES 10/20/2016: KHALIDA/cardioversion - Dr. Pugh. Echocardiogram: Technically difficult; normal LV systolic function with EF 64%. CLINICAL RESUME Mr. Palma is a 71-year-old gentleman who presents to emergency room secondary to dyspnea. He has been noticing dyspnea over the past three days. He reports shortness of breath that is worse at night while lying down. He was not having chest pain, palpitations, dizziness or GI complaints. Due to his consistent symptoms, he presents to emergency room. Upon arrival his heart rate was found to be elevated at 146 - 12-lead EKG did reveal atrial fibrillation with rapid ventricular response. Further evaluation was performed. His white count is normal. Sodium slightly elevated at 145. Troponin is less than 0.012. TSH is 1.23. Chest x-ray did show small bilateral pleural effusion with potential pulmonary edema. He was given Lopressor 5 mg IV initially followed by 20 mg of IV Lasix and then 10 mg IV Cardizem. Cardizem drip was initiated and started at 10 mg/hour. Heart rate did decrease to 110-120, but rhythm remained in atrial fibrillation. Dr. Pugh was contacted by emergency room provider who recommended admission. Hospitalist services was then contacted and did accept patient for inpatient admission to ICU for further evaluation and treatment. For complete details of the H&P refer to that document. LABORATORY White blood count is 9.4 with hemoglobin 13.6, hematocrit 41.1, MCV 88.2 and platelets 163,000. Serum sodium is 145, potassium 3.6, chloride 107, CO2 23, BUN 16 with creatinine 0.8, GFR 95 and blood glucose 118. Hemoglobin A1c is 6.5%. Total bilirubin is 1.60. AST is normal at 24 with ALT normal at 38. Troponin I is less than 0.012. ProBNP is 679. TSH normal at 1.23. D-dimer is to 212. HOSPITAL COURSE The patient was placed in inpatient admission status at [facility] under the hospitalist service. Dr. Pugh was consulted for cardiac evaluation and further treatment of his atrial fibrillation with rapid ventricular rate. Cardizem was continued for heart rate control. Echocardiogram was obtained. Serial enzymes were performed which showed no evidence of acute myocardial infarction. He was initiated on Bumex 2 mg IV b.i.d. to help with diuresis to motivate his pulmonary edema. Potassium was started to minimize potential hypokalemia secondary to loop diuretic use. JOSE A hose and SCDs were utilized to help with lower extremity edema. Eliquis was started at 5 mg b.i.d. for anticoagulation in light of his atrial fibrillation. He has made Full Code at time of presentation as per his request. Overall his hospital course was one of good improvement. Dr. Pugh did interview and examine the patient on day of presentation. He discussed risks versus benefits versus alternative therapy to transesophageal echocardiogram with subsequent cardioversion if no evidence of clot was found in his atrium. Informed consent was obtained. The patient was made n.p.o. after midnight and on hospital day #1 he was able to undergo KHALIDA/cardioversion. He tolerated the procedure well and did convert to normal sinus rhythm. Post cardioversion he was started on amiodarone intravenously bolused to help facilitate continued rate control. He did have some respiratory decline after the sedation for KHALIDA/cardioversion, requiring BiPAP. He needed to be on BiPAP for about an hour or so after procedure, after which he was transitioned to nasal cannula. Clinically he did well and was able to transfer out of CCU afternoon of hospital day #1 on to medical floor. There, we did override oximetry but did not see evidence for need of oxygen. Indeed we were able to wean him off ox oxygen the evening of hospital day #1. We continued to monitor his heart rate and rhythm secondary to amiodarone use. Fortunately, we did not see any adverse cardiac rhythm disturbances. Chest x-ray was repeated on hospital day #2 and this showed interval improvement of pulmonary edema with some residual small effusion. Respiratory status was much improved and patient was maintaining saturations in the range of 95-97% on room air. He was not having any chest pressure, pain or discomfort. His hypernatremia had normalized. Electrolytes were stable as was his renal function. He was able to eat and drink well. In light of his significant improvement he was able to be discharged to home. Narrative disclaimer: Above narrative is a brief summary of the patient's hospitalization; for complete details of the hospital course, refer to the medical record. DISCHARGE CONDITION Stable/good. DIET Low sodium, low carbohydrate. ACTIVITIES As tolerated. MEDICATIONS Eliquis 5 mg p.o. b.i.d. Pacerone 200 mg daily. Bumex 2 mg daily. Metoprolol tartrate 25 mg b.i.d. with meals. Potassium 20 mEq with breakfast. Multivitamin daily. Patient may stop aspirin - Risks outweigh potential benefits of combined aspirin and Eliquis use in this individual. FOLLOWUP The patient will follow with Dr. Pugh on 11/04/2016 at 2:20 p.m. The patient will be establishing primary care in the near future. INSTRUCTION TO PATIENT The patient was instructed on his diagnosis and treatments provided. He received informed consent prior to transesophageal echocardiogram and cardioversion. He received CHF instructions at time of discharge. Encouraged patient on medication adherence. Encouraged him to monitor sodium and fluid intake. He will watch for bleeding and bruising with Eliquis. Additionally, he will be mindful of any tarry, dark, sticky, black stools or other signs of GI bleeding. He will watch for temperature greater than 100.4. Should these or other concerns arise, he could be in contact with his primary provider. If symptoms become quite dire he can present to emergency room for acute evaluation. He voiced understanding of the above. Time spent with discharge greater than 35 minutes. MTDD
== END 2016-10-21 11:35 | disposition home or self-care (01) | DRG 308 ==
LOC: ED 11:52 → EDHOLD 13:40 → CCU 14:10 → MED 10-20 15:20
PROVIDERS: ADMIT Internal Medicine; ATTEND Internal Medicine
PROC: 5A2204Z Restoration of Cardiac Rhythm, Single (ICD-10-PCS; principal; 2016-10-20)
PROC: B246ZZ4 Ultrasonography of Right and Left Heart, Transesophageal (ICD-10-PCS; 2016-10-20)
DX: I48.91 Unspecified atrial fibrillation (principal); I50.31 Acute diastolic (congestive) heart failure; Z68.42 Body mass index [BMI] 45.0-49.9, adult; R06.09 Other forms of dyspnea; I11.0 Hypertensive heart disease with heart failure; I25.10 Atherosclerotic heart disease of native coronary artery without angina pectoris; E66.01 Morbid (severe) obesity due to excess calories; R60.0 Localized edema; F10.21 Alcohol dependence, in remission; F32.9 Major depressive disorder, single episode, unspecified; K21.9 Gastro-esophageal reflux disease without esophagitis; Z79.82 Long term (current) use of aspirin; I25.2 Old myocardial infarction; Z87.891 Personal history of nicotine dependence
CPT/HCPCS: 36415; 80048; 80053; 83036; 83735; 83880; 84443; 84484; 85025; 85379; 93005; 93306; 94002; 94762; 94770; 96374; 96375